=== PATIENT | female | born 1940 | race Caucasian/White ===

== ENCOUNTER 2020-06-11 13:30 | Outpatient (RCR) | payer MEDICARE, SELFPAY ==
--- NOTE | 2020-03-19 13:38 | PTOPEVAL ---
PHYSICAL THERAPY EVALUATION AND PLAN OF TREATMENT 03-19-2020 Thank you for referring Stephanie Simon to [facility].? She is scheduled to be seen for therapy? 2 x/week for 5 weeks. Please review, sign, date and return this plan of care JADYN. I agree with and certify that the following plan of care is medically necessary. Referring Physician Date Attending Provider: FIDELIA Baxter PT Outpatient Evaluation Document 03/19/20 12:35 BERNARDO (Rec: 03/19/20 13:38 BERNARDO [id number]) Outpatient Past Medical History Past Medical History Source of Past Medical History Patient Neurological History Hx Seizures Yes: meds control; not had any since 1970 Hx Other Neurological Disorders Yes: neuropathy in hands and feet- numb Cardiovascular History Hx Hypercholesterolemia Yes: meds Respiratory History Hx Other Respiratory Disorders Yes: SOB with exertion Gastrointestinal History Hx Other Gastrointestinal Disorders Yes: stomach hurt- not sure why,when eat it hurts Genitourinary History Hx Genitourinary Disorders No Significant History Musculoskeletal History Hx Back Pain Yes: dr said need back surgery , but avoiding dr due to COVID Hx Other Musculoskeletal Disorders Yes: muscle spasms- in back and sides of hips Hematological History Hx Hematological Disorders No Significant History Endocrine History Hx Hypothyroidism Yes: meds HEENT History Hx Cataracts Yes Hx Macular Degeneration Yes Hx Other HEENT Disorders Yes: wear glasses; B hearing aides; Other History Hx Other Medical Conditions Yes: vertigo/ dizzy when head moves Evaluation Information Problem Diagnosis falls/ gait imbalance Onset February 03, 2020 Subjective Information fell in February, up Query Text:As Reported By Patient/ off toliet, fell forward and Family hit forehead on tub; have had other falls, but not sure how long ago, over 6 months; more problems with walking due to back leaning over and back pain; dr said I needed surgery on my back, but not sure why or what they want to do; Previous Treatments Previous Treatments For This Problem no PT for balance; Prior Level of Function Activity Level (Last 3 Months) Occupation retired Activity of Daily Living Ability Independent Indoor/Home
--- NOTE | 2020-03-19 13:53 | PCPTNOTE ---
At the evaluation time, pt stated she wanted to skip the week of for any therapy appointments; may be having some family come in from out of town.
--- NOTE | 2020-04-15 14:17 | OTOPEVAL ---
OCCUPATIONAL THERAPY EVALUATION 04/15/20 Thank you for referring Stephanie Simon to [facility].? The patient is scheduled to be seen for therapy?1x/week for 4 weeks. Please review, sign, date and return this plan of care JADYN. I agree with and certify that the following plan of care is medically necessary. 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 Cardiovascular History Hx Hypercholesterolemia Yes: meds Respiratory History Hx Other Respiratory Disorders Yes: SOB with exertion Gastrointestinal History Hx Other Gastrointestinal Disorders Yes: stomach hurt- not sure why,when eat it hurts Genitourinary History Hx Genitourinary Disorders No Significant History Musculoskeletal History Hx Arthritis Yes Hx Back Pain Yes: dr said need back surgery , but avoiding dr due to COVID Hx Other Musculoskeletal Disorders Yes: muscle spasms- in back and sides of hips Hematological History Hx Hematological Disorders No Significant History Endocrine History Hx Hypothyroidism Yes: meds HEENT History Hx Cataracts Yes Hx Macular Degeneration Yes Hx Other HEENT Disorders Yes: wear glasses; B hearing aides; Other History Hx Other Medical Conditions Yes: vertigo/ dizzy when head moves Evaluation Information Problem Diagnosis Left hand pain Subjective Information Dejah reports pain in her Query Text:As Reported By Patient/ left thumb. She states that Family when she is using her thumb, the end joint gets stuck and she has to use her right hand to straighten it. She states this has been happening for about 1 month. She reports difficulties using the hand to button. Diagnostic Tests X-Rays For This Problem No MRI For This Problem No Other Tests For This Problem No Prior Level of Function Activity Level (Last 3 Months) Hand Dominance Right Activity of Daily Living Ability Independent Cooking Yes Cleaning Yes
--- NOTE | 2020-04-23 14:38 | PTOPEVAL ---
PHYSICAL THERAPY DISCHARGE 04-23-20 Refer to the clinical summary below for the comparison for today and the initial evaluation. Her goals were achieved, except time for 5 reps of sit/stand and Tinetti balance score. Thank you for referring Stephanie Simon to [facility] Please review, sign, date and return this discharge JADYN. I agree with and certify that the following plan of care is medically necessary. Referring Physician Date Attending Provider: Marcelina Ingram, JELANI-C Document 04/23/20 13:55 BERNARDO (Rec: 04/23/20 14:38 BERNARDO [id number]) Assessment Status Discharge Subjective Information Dejah reports: legs are Query Text:As Reported By Patient/ better and walking is better Family since doing therapy; doing exercises at home; has not had any falls; not using the wheeled walker anymore; Pain Assessment Timing of Pain Assessment Timing of Pain Assessment Assessment Self Report Self Report Pain Level 0 Pain Score Pain Score 0: Self Report Lower Extremity Muscle Strength Testing General Lower Extremity Strength Gross Lower Extremity Strength standing R and L with B UE hold: hip abduction, hip extension, knee flexion; B PF x 20 reps each; sitting: knee extension to 0' R and L x 20 reps; able to sit with upright trunk and correct back posture, but increase pain in back and cannot maintain good posture; supine: pt reports increased pain in lower abdomen and not able to lie stand with knee extension B 0' and hip extension Balance Assessment Tinetti Balance Assessment Sitting Balance Steady, safe Ability to Arise Able, w/o using arms Attempts to Arise Arises on 1st attempt Immediate Standing Balance Steady w/o support Standing Balance Narrow stance w/o support Nudged Response Steady Standing with Eyes Closed Steady Step Pattern Turning 360 Degrees Continuous steps Stability Turning 360 Degrees Steady Sitting Down Safe, steady Initiation of Gait No hesitancy Right Foot Step Length Does pass stance foot Right Foot Step Height Completely clears floor Left Foot Step Length Does pass stance foot Left Foot Step Height Completely clears floor Step Symmetry Step length appears equal Step Continuity Steps appear continuous Path Descript
--- NOTE | 2020-05-26 15:18 | OTOPEVAL ---
OCCUPATIONAL THERAPY RE-EVALUATION REPORT 05/26/20 Thank you for referring Stephanie Simon to [facility].? The patient is scheduled to be seen for continued occupational therapy? 1x/week for 3 weeks. Please review, sign, date and return this plan of care JADYN. I agree with and certify that the following plan of care is medically necessary. Referring Physician Date Referring Provider: Marcelina Ingram, FIDELIA *OT Outpatient Re-Evaluation Evaluation Information Problem Diagnosis Left hand pain Onset February 2020 Additional Evaluation Detail Patient has been treated for signs and symptoms of trigger thumb as demonstrated by the thumb IP getting stuck in a bent position with severe pain . She has been wearing a figure-8 immobilizer to rest the FPL tendon since 04/15/20. At the start of care she needed to manually pull the IP back into extension and today she is able to freely bend and extend the IP joint with out triggering or severe pain. Subjective Information [place] reports that her Query Text:As Reported By Patient/ thumb rarely gets stuck . She Family does remove the splint for dishes, bathing, and dressing. Pain Assessment Timing of Pain Assessment Timing of Pain Assessment Re-assessment Pain Scale Pain Scale Used Numeric (1 - 10) Self Report Pain Assessment Left Thumb(s) Reported Pain Level 0 Lowest Pain Intensity 0 Greatest Pain Intensity 3 Pain Score Pain Score 0: Self Report Additional Pain Score Comments At the initial evaluation, patient was experiencing 10/ 10 pain in the left thumb. Today she reports her pain at 0/10 with intermittent instances of pain at 3/10 . She has been able to use the left hand without the splint for dishes, bathing, and dressing and reports doing well. Upper Extremity Range of Motion Thumb Range of Motion Left Thumb MCP Flexion - Active 70 Thumb IP Flexion - Active 45 Thumb CMC Radial Abduction - Active 50 Opposition to 5th Digit Base 0 Thumb Range of Motion Comments -Thumb CMC and MCP AROM is WNL. -At rest she has a collapsed
--- NOTE | 2020-06-11 14:21 | OTOPEVAL ---
OCCUPATIONAL THERAPY D/C 06/11/20 Dejah presents today for second re-evaluation since beginning hand therapy on 04/15/20. She has made progress with having less thumb pain, considering at the start of care she was having 10/10 pain and the thumb IP was getting stuck in a flexed position daily. At this time she has no functional limitations and pain rated at 3-4/10 with cooking and dishes. She is independent with splint wearing schedule and a splint weaning schedule as her pain continues to subside over time. Discharging today with patient independent with all materials. Thank you for referring Stephanie Simon to [facility]. Please review, sign, date and return this D/C Note JADYN. I agree with and certify that the following plan of care is medically necessary. Referring Physician Date Referring Provider: Marcelina Ingram, FIDELIA *OT Outpatient Evaluation Start: 04/15/20 13:08 Evaluation Information Problem Diagnosis Left hand pain Onset February 2020 Additional Evaluation Detail Patient has been treated for signs and symptoms of trigger thumb as demonstrated by the thumb IP getting stuck in a bent position with severe pain . She wore a figure 8 splint to immobilize the thumb IP x4 weeks and she can now bend and extend IP joint with out triggering or severe pain. She does have some residual pain and soreness at the MCP joint. Subjective Information Dejah reports that her Query Text:As Reported By Patient/ thumb rarely gets stuck . She Family reports no functional limitations at this time. Pain Assessment Timing of Pain Assessment Timing of Pain Assessment Re-assessment Pain Scale Pain Scale Used Numeric (1 - 10) Self Report Pain Assessment Left Thumb(s) Reported Pain Level 0 Lowest Pain Intensity 0 Greatest Pain Intensity 4 Pain Score Pain Score 0: Self Report Upper Extremity Range of Motion Thumb Range of Motion Left Thumb MCP Flexion - Active 70 Thumb IP Flexion - Active 45 Thumb CMC Radial Abduction - Active 50 Opposition to 5th Digit Base 0 Thumb Range of Motion Comments -Thumb CMC and MCP AROM is WNL . -At rest she has a collapsed thumb with CMC flexion and MCP hyperextension due to arthritic changes. -Patient continues to have intermittent instances of thumb triggering. She is able
== END 2020-06-12 09:47 | disposition home or self-care (01) ==
LOC: ANHOT 13:30
PROVIDERS: PCP Internal Medicine; Visit Provider Clinical Nurse Specialist
DX: Z91.81 History of falling (principal)
CPT/HCPCS: 97018; 97035; 97110; 97112; 97116; 97140; 97161; 97165; 97530; L3913; L3933

== ENCOUNTER 2020-07-21 11:20 | Outpatient (CLI) | payer MEDICARE, SELFPAY | END 2020-07-21 11:21 | disposition home or self-care (01) | LOC: ANHCOVIDVC 11:21 | PROVIDERS: PCP Internal Medicine | DX: Z23 Encounter for immunization (principal) | CPT/HCPCS: 0001A; 91300 ==

== ENCOUNTER 2020-08-11 11:35 | Outpatient (CLI) | payer MEDICARE, SELFPAY | END 2020-08-11 11:36 | disposition home or self-care (01) | LOC: ANHCOVIDVC 11:36 | PROVIDERS: PCP Internal Medicine | DX: Z23 Encounter for immunization (principal) | CPT/HCPCS: 0002A; 91300 ==

== ENCOUNTER 2020-10-14 13:14 | Emergency (ER) | payer MEDICARE, SELFPAY ==
--- NOTE | ~2020-10-14 | CT_ITS ---
EXAMINATION: CT lumbar spine wo con DATE: 10/14/2020 14:23 INDICATION: Low back pain. Fall. TECHNIQUE: Computed tomography (CT) of the lumbar spine was performed without intravenous contrast. A utomated exposure control and iterative reconstruction technique were employed. The dose-length produ ct was 998.44 mGy-cm. COMPARISON: Lumbar spine radiograph 07/19/2018 FINDINGS: There is 3 degrees levocurvature of lumbar spine. There is a chronic compression fracture o f L1 with 1/5 loss of height. There is severely decreased disc height at T12, L3-L4, L4-L5, and L5-S1 . The following disc levels are specifically discussed: L1-L2: The disc is bulging. There is mild bilateral facet joint osteoarthritis. There is mild bilater al neural foraminal stenosis. There is mild central canal stenosis. L2-L3: The disc is bulging. There is moderate bilateral facet joint osteoarthritis. There is mild sandi ateral neural foraminal stenosis. There is mild central canal stenosis. L3-L4: The disc is bulging. There is moderate bilateral facet joint osteoarthritis. There is moderate bilateral neural foraminal stenosis. There is mild central canal stenosis. L4-L5: The disc is bulging. There is moderate bilateral facet joint osteoarthritis. There is moderate bilateral neural foraminal stenosis. There is mild central canal stenosis. L5-S1: The disc does not extend beyond the endplate margin. There is severe bilateral facet joint ost eoarthritis. There is mild bilateral neural foraminal stenosis. There is no central canal stenosis. IMPRESSION: 1. Severe lumbar spondylosis. Reviewed, dictated and finalized at location A.
--- NOTE | ~2020-10-14 | CT_ITS ---
EXAMINATION: CT brain wo con DATE: 10/14/2020 14:23 INDICATION: Head injury. TECHNIQUE: Computed tomography (CT) of the head was performed without intravenous contrast. The mA wa s adjusted according to patient size. Iterative reconstruction technique was employed. The dose-lengt h product was 529.67 mGy-cm. COMPARISON: None FINDINGS: There are scattered areas of low attenuation in the cerebral white matter. There is no intr acranial hemorrhage, acute infarction, or abnormal intracranial mass lesion. There are likely changes of ocular lens replacement surgeries. 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 The mastoid air cells are normal. There is mild mucosal thickening in the ethmoid sinuses. IMPRESSION: 1. Extensive nonspecific cerebral white matter disease, which likely represents chronic small vessel ischemic disease. Reviewed, dictated and finalized at location A.
--- NOTE | ~2020-10-14 | CT_ITS ---
EXAMINATION: CT cervical spine wo con DATE: 10/14/2020 14:23 INDICATION: Posterior head injury post fall TECHNIQUE: Computed tomography (CT) of the cervical spine was performed without intravenous contrast. Automated exposure control and iterative reconstruction technique were employed. The dose-length pro duct was 151.68 mGy-cm. COMPARISON: Radiograph dated 12/30/2009 FINDINGS: Mild reversal of the normal lordosis in the mid to upper cervical spine. No spondylolisthesis or face t subluxation. Chronic mild anterior wedging at C4. Vertebral body heights are otherwise normal. No f racture. Severe disc height loss with degenerative endplate changes at C3-C4, C4-C5 and C5-C6. Mild d isc height loss at the remaining cervical levels. Cervical soft tissues are unremarkable. The visuali zed portions of the airway and apices of lungs are clear. The following disc levels are specifically discussed: C2-C3: Disc is mildly bulging. There is mild bilateral uncovertebral joint osteoarthritis. There is m ild right and severe left facet joint osteoarthritis. There is minimal right and moderate left neural foraminal stenosis. There is no central canal stenosis. C3-C4: Posterior disc osteophyte complex is present. There is severe bilateral uncovertebral joint os teoarthritis. There is mild bilateral facet joint osteoarthritis. There is moderate bilateral neural foraminal stenosis. There is mild to moderate central canal stenosis. C4-C5: Posterior disc osteophyte complex is present. There is severe bilateral uncovertebral joint os teoarthritis. There is mild bilateral facet joint osteoarthritis. There is moderate left and moderate to severe right neural foraminal stenosis. There is moderate central canal stenosis. C5-C6: Posterior disc osteophyte complex is present. There is severe bilateral uncovertebral joint os teoarthritis. There is mild bilateral facet joint osteoarthritis. There is moderate bilateral neural foraminal stenosis. There is mild to moderate central canal stenosis. C6-C7: Disc is bulging. There is moderate left and moderate to severe right uncovertebral joint osteo arthritis. There is mild bilateral facet joint osteoarthritis. There is moderate bilateral, left grea ter than right neural foraminal stenosis. There is mild central canal stenosis. C7-T1: The disc does not extend beyond the endplate margin. There is mild bilateral uncovertebral bakari nt osteoarthritis. There is mild bilateral facet joint osteoarthritis. There is minimal bilateral darwin ral foraminal stenosis. There is no central canal stenosis. IMPRESSION: 1. Severe cervical spondylosis. No acute osseous abnormality. Reviewed, dictated and finalized at location A.
[2020-10-14 13:26] VITALS: BP 112/55; PULSE 70; RESP 16; TEMP 36.3; O2SAT 99
--- NOTE | 2020-10-14 14:12 | ED.GENADULT ---
HPI - General Adult General Chief complaint: Fall Stated complaint: HEAD INJURY Time Seen by Provider: 10/14/20 13:23 Source: patient, family, EMS and RN notes reviewed Mode of arrival: EMS Limitations: no limitations History of Present Illness HPI narrative: Patient is a 80-year-old female who presents to emergency department for evaluation of head injury and back injury after having a mechanical fall which she attributes to unsteady gait with history of neuropathy. Patient presents per EMS no distress notes mild pain of the posterior head and low back. Patient denies any other injuries or complaints. Patient denies anticoagulant or antiplatelet medications. On arrival patient has not had anything for pain. Patient denies any recent illness or other complaints Related Data Home Medications Medication Instructions Recorded Confirmed cholecalciferol (vitamin D3) 50 50 mcg PO DAILY 08/21/19 09/23/20 mcg (2,000 unit) capsule lansoprazole 15 mg delayed 15 mg PO DAILY 08/21/19 09/23/20 release,disintegrating tablet Allergies Allergy/AdvReac Type Severity Reaction Status Date / Time Penicillins Allergy Unknown Hives Verified 10/14/20 13:29 Review of Systems Review of Systems: All systems reviewed & are unremarkable except as noted in HPI and below PMFSH Past Medical History Medical History Chronic midline low back pain without sciatica GERD (gastroesophageal reflux disease) Hyperlipidemia Hypothyroidism Overactive bladder Peripheral sensory neuropathy Seizure disorder Vitamin D deficiency Family History Family History (System 06/28/19 @ 11:24 by Alyson Alegria) Father Family history of malignant neoplasm of brain Mother Family history of throat cancer Social History Social History (Updated 10/14/20 @ 14:14 by Quentin Delaney PA-C) Smoking status: Former smoker Alcohol intake: never Exam Narrative: Exam Narrative: GENERAL: Well-appearing, well-nourished, and in no acute distress. HEAD: Normocephalic, atraumatic. EYES: PERRLA and EOMI. ENT: Nares clear, no rhinorrhea or epistaxis. Mucous membranes moist. NECK: Supple. No adenopathy or masses. CHEST: Clear to auscultation. No respiratory distress. No wheezes rales or rhonchi HEART: Regular rate and rhythm. No murmur heard. Normal peripheral pulses. ABDOMEN: Soft, nontender, nondistended EXTREMITIES: Normal range of motion. No edema. Mild cervical lumbar tenderness no deformities SKIN: Warm, dry, no rash. NEURO: No focal deficits. Alert and oriented x3. Cranial nerves II through XII grossly intact. Normal speech and gait PSYCH: Normal mood and affect. Course Course Emergency Course: Patient in the room no distress aware of case findings treatment plan diagnosis hemodynamically stable ABCs and vital signs intact Vital Signs Vital signs: Vital Signs Temperature 97.4 F L 10/14/20 13:26 Pulse Rate 70 10/14/20 13:26 Respiratory Rate 16 10/14/20 13:26 Blood Pressure 112/55 L 10/14/20 13:26 Pulse Oximetry 99 10/14/20 13:26 Temperature 97.4 F L 10/14/20 13:26 Pulse Rate 70 10/14/20 13:26 Respiratory Rate 16 10/14/20 13:26 Blood Pressure 112/55 L 10/14/20 13:26 Pulse Oximetry 99 10/14/20 13:26 Medical Decision Making MDM Narrative Medical decision making narrative: Patients injury or pain is consistent with musculoskeletal etiology. No signs of neurological or vascular compromise on exam. Compartments and tisues are soft without signs of compartment syndrome. Pain is felt appropriate for further evaluation on an outpatient basis. Vital Signs Vital Signs: Vital Signs Temperature 97.4 F L 10/14/20 13:26 Pulse Rate 70 10/14/20 13:26 Respiratory Rate 16 10/14/20 13:26 Blood Pressure 112/55 L 10/14/20 13:26 Pulse Oximetry 99 10/14/20 13:26 Temperature 97.4 F L 10/14/20 13:26 Pulse Rate 70 10/14/20 13:26 Respiratory Rate
[2020-10-14 15:53] VITALS: BP 120/58; PULSE 72; RESP 18; TEMP 36.7; O2SAT 99
== END 2020-10-14 15:45 | disposition home or self-care (01) ==
PROVIDERS: Emergency Provider Emergency Medicine; PCP Internal Medicine
DX: S09.90XA Unspecified injury of head, initial encounter (principal); M54.5 Low back pain; M47.812 Spondylosis without myelopathy or radiculopathy, cervical region; K21.9 Gastro-esophageal reflux disease without esophagitis; E78.5 Hyperlipidemia, unspecified; E03.9 Hypothyroidism, unspecified; G40.909 Epilepsy, unspecified, not intractable, without status epilepticus; W19.XXXA Unspecified fall, initial encounter
CPT/HCPCS: 70450; 72125; 72131; 99284

== ENCOUNTER → 2020-10-21 15:16 | Outpatient (CLI) | payer MEDICARE, SELFPAY ==
--- NOTE | ~2020-10-21 | XR_ITS ---
XR knee LT 2V DATE: 10/21/2020 15:43 INDICATION: Bilateral knee pain TECHNIQUE: Standing AP and lateral views COMPARISON: None FINDINGS: There is diffuse osteopenia. No fracture or dislocation or joint effusion. No periosteal reaction or bone destruction. Joint space s are relatively well preserved. No radiopaque intra-articular loose body or chondrocalcinosis. Popliteal artery calcification. IMPRESSION: Osteopenia Reviewed, dictated and finalized at location A. IMPRESSION: Osteopenia
--- NOTE | ~2020-10-21 | XR_ITS ---
XR knee RT 2V DATE: 10/21/2020 15:43 INDICATION: Bilateral knee pain TECHNIQUE: Standing AP and lateral views COMPARISON: None FINDINGS: There is diffuse osteopenia. No fracture or dislocation or joint effusion. No periosteal reaction or bone destruction. Joint space s are well preserved. No radiopaque intra-articular loose body or chondrocalcinosis. IMPRESSION: Osteopenia Reviewed, dictated and finalized at location A. IMPRESSION: Osteopenia
== END ==
PROVIDERS: PCP Internal Medicine; Visit Provider Nurse Practitioner Family
DX: M85.861 Other specified disorders of bone density and structure, right lower leg (principal); M85.862 Other specified disorders of bone density and structure, left lower leg
CPT/HCPCS: 73560

== ENCOUNTER → 2020-11-19 11:49 | Outpatient (CLI) | payer MEDICARE, SELFPAY ==
--- NOTE | ~2020-11-19 | DEXA_ITS ---
Bone Density Report Name: Stephanie Simon Age: 80 Sex: Female Ethnicity: White Date of : 1940 Indication: postmenopausal; screening for osteoporosis; height loss; seizure disorder; Referring Provider: Krys Scales Study: Bone densitometry was performed. Exam Date: November 19, 2020 Accession number: [id number] Bone Density: Region BMD T-score Z-score Classification AP Spine (L1, L2) 0.852 -1.2 1.3 Osteopenia Femoral Neck (Left) 0.489 -3.2 -1.0 Osteoporosis Total Hip (Left) 0.569 -3.1 -1.0 Osteoporosis Femoral Neck (Right) 0.538 -2.8 -0.5 Osteoporosis Total Hip (Right) 0.544 -3.3 -1.2 Osteoporosis Total Hip Mean 0.557 -3.2 -1.1 Osteoporosis World Health Organization criteria for BMD impression classify patients as: Normal (T-score at or above -1.0), Osteopenia (T-score between -1.0 and -2.5), or Osteoporosis (T-score at or below -2.5). 10-year Fracture Risk: FRAX not reported because: Some T-score for Spine Total or Hip Total or Femoral Neck at or below -2.5 Clinical Information Provided by Patient: Has used the following medications: Vitamin D, Levothyroxine Has the following medical conditions: Any Seizure Disorders Patient maximum height was 62.0 Menopause Age: 52 No regular weight bearing exercise Drinks caffeinated beverages Onset of menses at age 11 Number of children 0 Impression: The patient has osteoporosis, based on the Right Total Hip T-score. Discussion: INCREASED RISK OF FRACTURE. BONE DENSITY IS UNDESIRABLY LOW AT ONE OR MORE SKELETAL SITES, CONSISTENT WITH POSTMENOPAUSAL OSTEOPOROSIS. This patient's lowest T-score meets the World Health Organization's (WHO) criteria for osteoporosis at one or more sites (T-score -2.5 or below). In untreated patients, the risk of osteoporotic fracture increases approximately two-fold for each 1.0 SD decrease in T-score. Low bone density is not the only risk factor for fracture; also consider factors such as patient's age, frailty or poor health, risk of falling, risk of injury, previous osteoporotic fracture, family history of osteoporosis, cigarette smoking, low body weight, etc. Not everyone with low bone mineral density has osteoporosis; osteomalacia and other metabolic bone disorders should also be considered. Patients who have osteoporosis should be evaluated for specific diseases and conditions (secondary causes) that may cause or contribute to bone loss. The [place] [employer]ocrinologists (AACE) and National Osteoporosis Foundation (NOF) recommend pharmacologic intervention for all postmenopausal women whose T-score is in this range. The patient should follow a healthful lifestyle (good nutrition with adequate calcium and vitamin D, and appropriate weight-bearing exercise). Follow-Up: Consider a repeat BMD and Vertebral Fractu
== END ==
PROVIDERS: PCP Nurse Practitioner; Visit Provider Nurse Practitioner
DX: Z78.0 Asymptomatic menopausal state (principal); M85.89 Other specified disorders of bone density and structure, multiple sites; M81.0 Age-related osteoporosis without current pathological fracture
CPT/HCPCS: 77080

== ENCOUNTER 2020-12-24 14:34 | Emergency (ER) | payer MEDICARE, SELFPAY ==
--- NOTE | ~2020-12-24 | XR_ITS ---
EXAMINATION: XR wrist RT 2V DATE: 12/24/2020 15:23 INDICATION: Right wrist deformity post fall TECHNIQUE: Posteroanterior and lateral views of the right wrist were obtained. COMPARISON: none FINDINGS: 3 mm ulnar positive variance. Alignment is otherwise normal. No fracture. Polyarticular osteoarthriti s, severe at the first carpometacarpal joint, moderate severity at the first, third and fourth metaca rpophalangeal and first interphalangeal joints and mild at the distal radioulnar, wrist, midcarpal, t riscaphe, second carpometacarpal and remainder of the profiled metacarpophalangeal and interphalangea l joints. Diffuse osteopenia. Soft tissues are unremarkable. IMPRESSION: 1. No acute osseous abnormality. 2. Polyarticular osteoarthritis, severe at the first carpometacarpal joint and mild to moderate at mu ltiple joints throughout the remainder of the right hand and wrist. Reviewed, dictated and finalized at location A. IMPRESSION: 1. No acute osseous abnormality. 2. 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
--- NOTE | ~2020-12-24 | XR_ITS ---
XR humerus RT 12/24/2020 15:23 Indication: Right arm pain after fall Procedure: 2 views right humerus Comparison: No prior studies for comparison. Findings: There is a nondisplaced right humeral neck fracture extending inferiorly and obliquely into the metadiaphysis. Osteopenia. Surrounding osseous structures within normal limits. Impression: 1: Nondisplaced right humeral neck fracture extending inferiorly/obliquely into the metadiaphysis. Reviewed, dictated and finalized at location A. Impression: 1: Nondisplaced right humeral neck fracture extending inferiorly/obliquely into the metadiaphysis.
[2020-12-24 14:36] VITALS: BP 123/88; PULSE 78; RESP 16; TEMP 36.5; O2SAT 99
--- NOTE | 2020-12-24 16:25 | ED.UPPEXIN ---
HPI - Extremity Injury (Upper) General Chief Complaint: Fall Stated Complaint: fall Time Seen by Provider: 12/24/20 14:57 Source: patient and family Mode of arrival: ambulatory Limitations: no limitations History of Present Illness HPI narrative: 80-year-old female She apparently has occasional trouble with stumbling and falling due to weak legs This happened at her home 4 days ago and she crashed into the refrigerator with her right shoulder She did not go all the way to the ground, did not hit her head or lose consciousness, does not have any headache neck pain or new neurologic symptoms Here today because her shoulders been hurting since the accident and she has over the last day or so developed some impressive ecchymosis in the right upper arm Related Data Home Medications Medication Instructions Recorded Confirmed lansoprazole 15 mg delayed 15 mg PO DAILY 08/21/19 11/26/20 release,disintegrating tablet meloxicam 15 mg tablet 15 mg PO DAILY 11/26/20 11/26/20 Allergies Allergy/AdvReac Type Severity Reaction Status Date / Time Penicillins Allergy Unknown Hives Verified 11/26/20 13:47 Review of Systems Review of Systems: All systems reviewed & are unremarkable except as noted in HPI and below Constitutional: Constitutional: Reports no additional constitutional complaints, Denies chills, Denies fever(s), Denies headache(s) and Reports weakness Eyes: Eyes: Reports no additional eye complaints and Denies change in vision ENT: Denies dizziness, Denies headache(s) and Denies sore throat Cardiovascular: Cardiovascular: Denies chest pain and Denies dyspnea Respiratory: Respiratory: Denies cough and Denies dyspnea Gastrointestinal: Gastrointestinal: Denies abdominal pain, Denies diarrhea and Denies vomiting Genitourinary: Genitourinary: Denies urinary frequency and Denies dysuria Musculoskeletal: Musculoskeletal: Denies deformity, Reports arthralgias, Reports joint swelling and Denies numbness Integumentary/Breasts: Skin/Breast: Denies rash and Denies wounds Neurologic: Denies vertigo, Denies syncope, Denies headache(s), Denies focal weakness, Denies numbness and Reports weakness Psychiatric: Psychiatric: Reports no additional psychiatric complaints Endocrine: Endocrine: Reports no additional endocrine complaints Hematologic/Lymphatic: Hematologic/Lymphatic: Reports no additional hematologic/lymphatic complaints Allergic/Immunologic: Allergic/Immunologic: Reports no additional allergic/immunologic complaints PMFSH Past Medical History Medical History Age related osteoporosis Chronic midline low back pain without sciatica GERD (gastroesophageal reflux disease) Hyperlipidemia Hypothyroidism Overactive bladder Peripheral sensory neuropathy Seizure disorder Vitamin D deficiency Family History Family History Father Family history of malignant neoplasm of brain Mother Family history of throat cancer Social History Social History Smoking status: Former smoker Alcohol intake: never Exam Const: General: cooperative, no acute distress and alert Orientation/consciousness: patient oriented x3 (alert) HENMT: Head: normal to inspection, normocephalic, atraumatic, no contusions and no hematomas Ears: external ears normal General nose exam: no epistaxis Eyes: Conjunctivae: conjunctivae normal EOM: EOMs intact bilaterally Neck: Neck: normal visual inspection, supple and no JVD Other: Nontender Resp: Auscultation: other (BS =) Skin: General skin exam: normal color and no rashes or lesions noted Neuro: General: patient oriented x3 (alert) and moves all extremities Speech: normal speech Extrem: Other: Large amount of diffuse ecchymosis to the right upper arm No gross deformity Tender proximal humerus Not tender at the elbow and good r
[2020-12-24 17:06] VITALS: BP 122/50; PULSE 75; RESP 18; O2SAT 98
== END 2020-12-24 17:07 | disposition home or self-care (01) ==
PROVIDERS: Emergency Provider Emergency Medicine; PCP Internal Medicine
DX: S42.214A Unspecified nondisplaced fracture of surgical neck of right humerus, initial encounter for closed fracture (principal); E78.5 Hyperlipidemia, unspecified; E03.9 Hypothyroidism, unspecified; M81.0 Age-related osteoporosis without current pathological fracture; K21.9 Gastro-esophageal reflux disease without esophagitis; N32.81 Overactive bladder; G60.8 Other hereditary and idiopathic neuropathies; E55.9 Vitamin D deficiency, unspecified; Z87.891 Personal history of nicotine dependence; M19.031 Primary osteoarthritis, right wrist; M18.9 Osteoarthritis of first carpometacarpal joint, unspecified; M19.041 Primary osteoarthritis, right hand; W01.198A Fall on same level from slipping, tripping and stumbling with subsequent striking against other object, initial encounter
CPT/HCPCS: 73060; 73100; 99284; A4565

== ENCOUNTER 2020-12-31 08:21 | Inpatient (IN) | payer MEDICARE, SELFPAY ==
[2020-12-31] VITALS (18 sets, daily range): BP systolic 95–119; BP diastolic 39–68; PULSE 70–86; RESP 9–25; TEMP 36.1–36.7; O2SAT 94–100; BMI 28.9
--- NOTE | ~2020-12-31 | XR_ITS ---
EXAMINATION: XR chest 1V portable INDICATION: Right-sided pain after fall TECHNIQUE: Portable AP chest at 1807 hours COMPARISON: 01/13/2015 FINDINGS: Calcified pulmonary nodules are consistent with old granulomatous disease. The lungs are fr ee of acute opacities. There is no pleural effusion or pneumothorax. The cardiomediastinal silhouette is normal. IMPRESSION: 1. No acute cardiopulmonary abnormality. Reviewed, dictated and finalized at location A.
--- NOTE | ~2020-12-31 | CT_ITS ---
EXAMINATION: CT brain wo con EXAM DATE: 12/31/2020 09:07 INDICATION: Fall. Head injury. TECHNIQUE: Spiral CT of the head was performed without contrast. Axial, coronal and sagittal images were reviewed. The dose-length product (DLP) for this examination was 605.33 mGy-cm. The exposure w as tailored according to patient size, and iterative reconstruction (ASIR) was used as additional dos e reduction technique. Comparison is made to prior examination from 10/14/2020. FINDINGS: There is no acute intraparenchymal hemorrhage. No evidence of intraparenchymal brain mass lesion. No evidence of acute infarction. Please note that initial head CT has limited sensitivity f or small or acute infarctions. There is moderate periventricular and subcortical hypodensity, nonspec ific but probably related to small vessel ischemic disease. There is mild to moderate prominence of the sulci and ventricles related to cerebral atrophy. 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 There are no extra-axial collections. There is no mass effect or midline shift. Patient has kimbrough d bilateral ocular lens surgery. Soft tissue is unremarkable. The visualized sinuses and mastoid ai r cells are well aerated. IMPRESSION: 1. No acute intracranial findings. 2. Chronic age related findings. Reviewed, dictated and finalized at location A.
--- NOTE | ~2020-12-31 | XR_ITS ---
EXAMINATION: XR surgery orthopedic DATE: 01/02/2021 14:25 INDICATION: Left hip gamma nailing post fracture TECHNIQUE: 5 fluoroscopic images of the left hip were obtained during procedure performed by Dr. Brooke chen. Radiologist was not present for the imaging or procedure. The amount of fluoroscopy time used du ring this procedure was 5.7 minutes. COMPARISON: 12/31/2020 FINDINGS: [employer] image demonstrates a nondisplaced intratrochanteric fracture of the proximal left femur. Subseq uent images demonstrate antegrade intramedullary shaw with interlocking femoral neck dynamic compressi on screw and distal interlocking screw fixation. Alignment remains essentially anatomic. Mild to mode rate left hip osteoarthritis. Chronic heterotopic ossification overlying the left greater trochanter. No new fractures identified. IMPRESSION: 1. Essentially anatomic alignment post internal fixation of a nondisplaced intratrochanteric fracture of the proximal left femur. Reviewed, dictated and finalized at location A. IMPRESSION: 1. Essentially anatomic alignment post internal fixation of a nondisplaced intr atrochanteric fracture of the proximal left femur.
--- NOTE | ~2020-12-31 | XR_ITS ---
EXAMINATION: XR hip LT 2V w AP pelvis EXAM DATE: 12/31/2020 09:19 INDICATION: Fall, left hip pain. Fracture. TECHNIQUE: Left hip frontal, 'frog leg' projections for interpretation. Frontal projection pelvis. There is no prior study for comparison. FINDINGS: There is acute closed posttraumatic nondisplaced left hip intertrochanteric fracture. There is no hip dislocation. Pelvic ring appears intact. IMPRESSION: Acute nondisplaced left hip intertrochanteric fracture. Reviewed, dictated and finalized at location A.
--- NOTE | ~2020-12-31 | XR_ITS ---
XR shoulder LT min 2V DATE: 01/05/2021 14:07 INDICATION: Left shoulder pain, hematoma TECHNIQUE: 4 views COMPARISON: None FINDINGS: There is diffuse osteopenia. Normal alignment at the acromioclavicular and glenohumeral joints. No fracture or dislocation, perios teal reaction or bone destruction. No abnormal left shoulder soft tissue calcification. IMPRESSION: Diffuse osteopenia Reviewed, dictated and finalized at location A. IMPRESSION: Diffuse osteopenia
--- NOTE | ~2020-12-31 | XR_ITS ---
EXAMINATION: XR knee LT min 4V EXAM DATE: 12/31/2020 09:20 INDICATION: Fall, left hip intertrochanteric fracture. Left knee pain. TECHNIQUE: Left knee frontal, crosstable lateral, orthogonal oblique projections for interpretation. Comparison is made to prior examination from 10/21/2020. FINDINGS: No evidence osteochondral defect or joint body in the left knee joint. There are no acute fractures or dislocations identified. There is no subcutaneous gas. The soft tissue is unremarkabl e. There are no radiopaque foreign bodies. No joint effusion. IMPRESSION: 1. Left knee exam without acute osseous findings. Reviewed, dictated and finalized at location A.
--- NOTE | 2020-12-31 08:35 | PC.NURSE ---
bruises noted to pts arms and legs in various stages of healing. pt states is from previous falls. extensive bruise noted to right arm. black, blue and yellow in color.
--- NOTE | 2020-12-31 08:44 | ED.FALL ---
HPI - Fall General Chief Complaint: Fall Stated Complaint: left knee pain after fall Time Seen by Provider: 12/31/20 08:23 Source: RN notes reviewed History of Present Illness HPI Narrative: Patient presents emergency department from home via EMS for fall. Patient states that she was sitting on the toilet and was trying to reposition herself when she fell she states she struck the left side of her head with no loss of consciousness also states she struck her left knee. Patient states that she has been able to get up and ambulate since that occurred. Patient states that she has no chest pain shortness of breath abdominal pain or any other symptoms denies any other injuries. Patient does states she fell approximately 2 weeks ago and broke her right shoulder at that time states that since that time she been having difficulty time getting around at her house and her family is also present states the patient has been unable to ambulate in the family is basically been having to lift her up to move her at this point with a repeated fall feel the patient is not safe to return home Related Data Home Medications Medication Instructions Recorded Confirmed lansoprazole 15 mg delayed 15 mg PO DAILY 08/21/19 12/29/20 release,disintegrating tablet meloxicam 15 mg tablet 15 mg PO DAILY 11/26/20 12/29/20 Allergies Allergy/AdvReac Type Severity Reaction Status Date / Time Penicillins Allergy Unknown Hives Verified 12/29/20 14:14 Review of Systems Review of Systems: Gen.: Denies fevers or chills Eyes: Denies eye pain or visual change ENT: Denies congestion Respiratory: Denies shortness of breath or cough CV: Denies chest pain or palpitations GI: Denies abdominal pain nausea, emesis or diarrhea denies burning, urgency, frequency or hematuria Musculoskeletal: See HPI Neuro: Denies numbness, tingling, reports generalized weakness Skin: Denies rash Except as documented, all other systems reviewed and negative PMF Past Medical History Medical History Age related osteoporosis Chronic midline low back pain without sciatica GERD (gastroesophageal reflux disease) Hyperlipidemia Hypothyroidism Overactive bladder Peripheral sensory neuropathy Seizure disorder Vitamin D deficiency Family History Family History Father Family history of malignant neoplasm of brain Mother Family history of throat cancer Social History Social History Smoking status: Former smoker Alcohol intake: never Substance use: never Gender identity (if verbalized by the patient): Female Exam Narrative: APPEARANCE: No acute distress, nontoxic, resting in bed EYES: EOMI HEENT: Normocephalic, atraumatic, OMM RESPIRATORY: No respiratory distress Clear to auscultation bilaterally with no rhonchi wheezing or rales. CARDIOVASCULAR: Regular rate and rhythm without murmurs rubs or gallops. ABDOMINAL: Soft, nontender, nondistended, no rebound or guarding MUSCULOSKELETAl: Moves all extremities. No clubbing, cyanosis or edema. No tenderness palpation bilateral upper extremities and right lower extremity tender palpation over the left lateral hip with no swelling or ecchymosis tender palpation of the left anterior lateral knee no swelling or ecchymosis, pain with flexion of the left knee no tenderness left ankle dorsalis pedis pulse 2+ neurovascular intact NEURO: Awake and alert x 3. Following commands, speech normal, no focal deficits SKIN:: Warm, dry. No rashes lesions or abrasions PSYCHIATRIC: Normal affect/mood, Course Course Emergency Course: Reviewed old records patient seen by Dr. Small 2 days ago for proximal humerus fracture Discussed Dr. Curry presentation work-up agrees with consult Dr. Oneill accepts patient to hospitalist service Discussed with patient and family results of workup
[2020-12-31 08:57] LABS: Basophils Percent Auto 0.6 % (0.2-1.2); Eosinophils Absolute Auto 0.1 K/mm3 (0-0.3); Eosinophils Percent Auto 2.4 % (0-4.4); Hematocrit 34.5 % (37.0-47.0); Hemoglobin 11.1 g/dL (12.0-15.0); Immature Granulocyte Absolute 0.02 K/mm3 (0.00-0.031); Immature Granulocyte Percent A 0.4 % (0-0.5); Lymphocytes Absolute Auto 0.95 K/mm3 (0.9-3.2); Lymphocytes Percent Auto 18.8 % (18.3-44.2); Mean Corpuscular HGB Conc 32.2 g/dl (32-36); Mean Corpuscular Hemoglobin 34.3 pg (26-34); Mean Corpuscular Volume 106.5 fl (80-100); Mean Platelet Volume 10.1 fl (7.4-10.4); Monocytes Absolute Auto 0.5 K/mm3 (0.1-0.6); Monocytes Percent Auto 9.5 % (2.6-8.5); Neutrophils Absolute Auto 3.5 K/mm3 (1.3-6.7); Neutrophils Percent Auto 68.3 % (45.5-73.1); Platelet Count Result 155 k/mm3 (150-375); Red Blood Count 3.24 M/mm3 (4.2-5.4); Red Cell Distribution Width 13.4 % (11.5-14.5); White Blood Count 5.1 K/mm3 (4.5-10.0)
[2020-12-31 09:07] LABS: Alanine Aminotransferase 14 U/L (4-35); Albumin Level 4.5 g/dL (3.5-5.1); Alkaline Phosphatase 99 U/L (38-126); Anion Gap 9 mmol/L (8-16); Aspartate Amino Transferase 27 U/L (14-36); Bilirubin,Total 0.4 mg/dL (0.2-1.3); Blood Urea Nitrogen 14 mg/dL (7-17); Calcium 8.6 mg/dL (8.4-10.2); Carbon Dioxide 29 mmol/L (22-30); Chloride 106 mmol/L (98-107); Estimated CRCL calculation 51 ml/min; Estimated Glomerular Filt Rate > 60; Glucose 162 mg/dL (65-110); Potassium 4.8 mmol/L (3.4-5.0); Sodium 144 mmol/L (137-145)
[2020-12-31] MEDS: ACETAMINOPHEN 500 MG TABLET 1000 MG PO (09:30)
--- NOTE | 2020-12-31 09:35 | ECG_ITS ---
Measurements Intervals [place] Rate: 74 P: -19 ME: 136 QRS: 58 QRSD: 94 T: 2 QT: 420 QTc: 467 Interpretive Statements SINUS RHYTHM BORDERLINE ST-T WAVE ABNORMALITY- ANT/INF LEADS BASELINE ARTIFACT- I, II, III, AVR, AVL, AVF, V2-V6 BORDERLINE ECG Electronically Signed On 12-31-2020 9:53:40 CDT by Terrence Meza D.O.
[2020-12-31 10:29] LABS: Add Urine Microscopic? YES; Appearance Urine Clear (Clear); Bacteria Urine Trace /hpf; Bilirubin Urine Negative (Negative); Color Urine Yellow (Yellow); Glucose Urine UA Negative (Negative); Ketones Urine Negative (Negative); Leukocyte Esterase Ur 2+ LEU/UL (Negative); Mucus Urine Rare /lpf; Nitrate Urine Positive (Negative); Protein Urine Negative (Negative); Specific Grav Ur 1.014 (1.001-1.035); Squamous Epithelial Cell Urine Occasional /hpf (Few); Urobilinogen Urine Negative mg/dL (<2.0); WBC Urine 51-75 /hpf
[2020-12-31 10:31] LABS: Blood Urine Negative (Negative)
[2020-12-31 11:51] LABS: Prothrombin Time 13.1 Seconds (11.1-14.7)
[2020-12-31 11:52] LABS: Partial Thromboplastin Time 24.1 SECONDS (22.3-36.8)
--- NOTE | 2020-12-31 12:42 | PM.CNOR ---
Assessment and Plan Additional Plan KAREN IS HERE FOR A LEFT INTERTROCHANTERIC HIP FRACTURE. SHE WILL REQUIRE PLACEMENT OF GAMMA DAVIAN. SHE CURRENTLY APPEARS TO BE STABLE. SHE DOES HAVE A UTI THAT SHOULD BE TREATED PRIOR TO DAVIAN PLACEMENT IF POSSIBLE. I DISCUSSED THE RISKS AND COMPLICATIONS OF SURGERY WITH THE PATIENT. DISCUSSED NONOPERATIVE AND OPERATIVE TREATMENT OPTIONS WITH THE PATIENT. THE PATIENT'S QUESTIONS WERE ANSWERED. THE PATIENT DESIRES OPERATIVE TREATMENT. DISCUSSED ___PLACEMENT OF GAMMA DAVIAN LEFT HIP. . RISKS OF SURGERY INCLUDING BUT NOT LIMITED TO NEUROVASCULAR DAMAGE, WOUND COMPLICATIONS, BLOOD CLOT, PULMONARY EMBOLUS, STROKE, ID, ANESTHETIC RISKS UP TO AND INCLUDING WERE REVIEWED. CONTINUED PAIN AND POSSIBLE DYSFUNCTION WERE EXPLAINED. NO GUARANTEES WERE OFFERED. THE PATIENT UNDERSTANDS AND WISHES TO PROCEED. History of Present Illness HPI Consult date: 12/31/20 Consult reason: fracture Chief complaint: left hip fracture Narrative: KAREN WAS ADMITTED TO THE ED AFTER A FALL FROM THE TOILET. NOW SHE HAS A LEFT INTERTROCHANTERIC HIP FRACTURE WITH MINIMAL DISPLACEMENT. SHE DENIES ANY OTHER PAIN OR ANY LOC OR NECK OR BACK PAIN. SHE HAS A PRIOR RIGHT PROXIMAL HUMERUS FRACTURE THAT I AM TREATING WELL. SHE HAS NO NEW COMPLAINTS OF SHOULDER PAIN. Review of Systems Review of Systems: All systems reviewed & are unremarkable except as noted in HPI and below (HPI) Eyes: Eyes: Reports no additional eye complaints ENT: Reports system reviewed and no additional complaints, except as documented and Reports Normal hearing present Cardiovascular: Cardiovascular: Reports no additional cardiovascular complaints and Denies chest pain Respiratory: Respiratory: Reports no additional respiratory complaints and Denies dyspnea Gastrointestinal: Gastrointestinal: Reports no additional gastrointestinal complaints Genitourinary: Genitourinary: Reports no additional female genitourinary complaints Musculoskeletal: Musculoskeletal: Reports as per HPI Neurologic: Reports system reviewed and no additional complaints, except as documented PMFSH Past Medical History Medical History Age related osteoporosis Chronic midline low back pain without sciatica GERD (gastroesophageal reflux disease) Hyperlipidemia Hypothyroidism Overactive bladder Peripheral sensory neuropathy Seizure disorder Vitamin D deficiency Family History Family History Father Family history of malignant neoplasm of brain Mother Family history of throat cancer Social History Social History Smoking status: Former smoker Alcohol intake: never Substance use: never Substance use type: does not use Gender identity (if verbalized by the patient): Female Spiritual care concerns: No Meds Home Medications and Allergies Home Medications Medication Instructions Recorded Confirmed Type lansoprazole 15 mg delayed 15 mg PO DAILY 08/21/19 12/31/20 History release,disintegrating tablet simvastatin 40 mg tablet 40 mg PO DAILY #90 tablet 06/24/20 12/31/20 Rx phenytoin sodium extended 100 mg 300 mg PO DAILY #270 cap 08/05/20 12/31/20 Rx capsule levothyroxine 75 mcg tablet 75 mcg PO DAILY #90 tablet 09/11/20 12/31/20 Rx cholecalciferol (vitamin D3) 125 125 mcg PO DAILY #30 cap 11/26/20 12/31/20 Rx mcg (5,000 unit) capsule denosumab 60 mg/mL subcutaneous 60 mg SUBCUT [id number] #1 ml 11/26/20 12/31/20 Rx syringe meloxicam 15 mg tablet 15 mg PO DAILY 11/26/20 12/31/20 History gabapentin 400 mg capsule 400 mg PO TID #270 cap 12/01/20 12/31/20 Rx Allergies Allergy/AdvReac Type Severity Reaction Status Date / Time Penicillins Allergy Unknown Hives Verified 12/29/20 14:14 Vital Signs Vital Signs - 24 hr 12/31/20 08:19 12/31/20 09:23 12/31/20 09:24
[2020-12-31] MEDS: LACTATED RINGERS 1,000 ML 80 ML IV CONT (13:01)
--- NOTE | 2020-12-31 15:47 | PC.NURSE ---
pt's brother, Landon, called wanting to know why he never received his phone call. Landon stated that the ED informed him that the RN would call him once pt was admitted. ED never said anything to me about their promise for me to call him.
--- NOTE | 2020-12-31 20:19 | PM.IMHP ---
H&P: HPI History of Present Illness Date/Time: 12/31/20 20:20 this is a very pleasant 80-year-old female patient who lives home alone. The patient has had multiple falls. She sustained a fall in her home on 12/20/2020 and Sustained a proximal humerus fracture which is placed in a immobilizer she was instructed to be on no weight-bearing to right upper extremity. however today the patient presented to the emergency room after another fall. The patient was sitting on the toilet was trying to reposition herself when she states that she struck the left side of her head and did not lose any consciousness. the patient stated she was Not able to get up and ambulate. The patient stated that she has been having difficulty getting around her house since she has had her right humerus fracture. The family member was unable to ambulate the patient today and they had to lift her up To move Her. the family member stated that the patient is not safe to return home. Left knee x-ray was read as left knee exam without osseous findings. Hip and pelvis x-ray read as acute nondisplaced left hip intertrochanteric fracture. Head CT was read as no acute intracranial findings. Chronic age-related findings. Her H&H is 11.1 and 34.5. Glucose is 162. The patient was found to be positive for UTI. I asked the patient if she could have possibly had a seizure because she has a history of having a seizure and is on seizure medicine. However the patient stated she has not had a seizure since 1970. The patient was started on Levaquin and given Tylenol for her discomfort. the patient was seen by Dr. Curry for ortho consult. The patient will require a gamma shaw.The patient is being admitted for observation status on the date of service of 12/31/2020 Chief Complaint: left hip pain Review of Systems Review of Systems: All systems reviewed & are unremarkable except as noted in HPI and below Constitutional: Constitutional: Reports as per HPI and Reports no additional constitutional complaints Eyes: Eyes: Reports as per HPI and Reports no additional eye complaints ENT: Reports system reviewed and no additional complaints, except as documented and Reports Normal hearing present Cardiovascular: Cardiovascular: Reports no additional cardiovascular complaints Respiratory: Respiratory: Reports no additional respiratory complaints and Reports no additional respiratory complaints Gastrointestinal: Gastrointestinal: Reports as per HPI and Reports no additional gastrointestinal complaints Musculoskeletal: Musculoskeletal: Reports no additional musculoskeletal complaints Integumentary/Breasts: Skin/Breast: Reports system reviewed and no additional complaints, except as docu and Reports as per HPI Neurologic: Reports system reviewed and no additional complaints, except as documented, Reports as per HPI and Reports Normal hearing present Psychiatric: Psychiatric: Reports no additional psychiatric complaints and Reports as per HPI Endocrine: Endocrine: Reports no additional endocrine complaints Hematologic/Lymphatic: Hematologic/Lymphatic: Reports no additional hematologic/lymphatic complaints Allergic/Immunologic: Allergic/Immunologic: Reports no additional allergic/immunologic complaints [facility] Past Medical History Medical History (Updated 12/31/20 @ 20:35 by Fabiola Girard NP) Age related osteoporosis Chronic midline low back pain without sciatica GERD (gastroesophageal reflux disease) Hyperlipidemia Hypothyroidism Overactive bladder Peripheral sensory neuropathy Seizure disorder Vitamin D deficiency Surgical History Surgical History (Updated 12/31/20 @ 20:30 by Fabiola Girard NP) Hx of cataract extraction Family History Family History Father Family history of malignant neoplasm of brain Mother Family history of throat cancer Social History Social History (Updated 12/31/20 @ 20:31 by Fabiola
[2020-12-31] MEDS: HYDROcodone/acetaminophen (*CRX) 5-325 MG TABLET 1 TAB PO (22:07)
[2021-01-01] MEDS: HYDROcodone/acetaminophen (*CRX) 5-325 MG TABLET 1 TAB PO ×3 (03:37→21:16)
[2021-01-01] MEDS: LACTATED RINGERS 1,000 ML 80 ML IV CONT (03:41)
[2021-01-01 05:43] LABS: Basophils Percent Auto 0.4 % (0.2-1.2); Eosinophils Absolute Auto 0.1 K/mm3 (0-0.3); Eosinophils Percent Auto 1.4 % (0-4.4); Immature Granulocyte Absolute 0.01 K/mm3 (0.00-0.031); Immature Granulocyte Percent A 0.2 % (0-0.5); Immature Platelet Fraction Pct 5.1 % (0.9-11.2); Lymphocytes Absolute Auto 0.92 K/mm3 (0.9-3.2); Lymphocytes Percent Auto 18.8 % (18.3-44.2); Mean Corpuscular HGB Conc 32.1 g/dl (32-36); Mean Corpuscular Hemoglobin 33.7 pg (26-34); Mean Corpuscular Volume 104.9 fl (80-100); Mean Platelet Volume 10.3 fl (7.4-10.4); Monocytes Absolute Auto 0.6 K/mm3 (0.1-0.6); Monocytes Percent Auto 11.2 % (2.6-8.5); Neutrophils Absolute Auto 3.3 K/mm3 (1.3-6.7); Platelet Count Result 125 k/mm3 (150-375); Red Blood Count 2.67 M/mm3 (4.2-5.4); Red Cell Distribution Width 13.4 % (11.5-14.5); White Blood Count 4.9 K/mm3 (4.5-10.0)
[2021-01-01] MEDS: LEVOTHYROXINE SODIUM 75 MCG TABLET PO (05:46)
[2021-01-01 06:00] VITALS: BP 145/57; PULSE 70; RESP 20; TEMP 36; O2SAT 100
[2021-01-01 06:02] LABS: Alanine Aminotransferase 12 U/L (4-35); Albumin Level 3.6 g/dL (3.5-5.1); Alkaline Phosphatase 77 U/L (38-126); Anion Gap 5 mmol/L (8-16); Aspartate Amino Transferase 24 U/L (14-36); Bilirubin,Total 0.3 mg/dL (0.2-1.3); Blood Urea Nitrogen 14 mg/dL (7-17); Calcium 8.3 mg/dL (8.4-10.2); Carbon Dioxide 28 mmol/L (22-30); Chloride 106 mmol/L (98-107); Estimated CRCL calculation 44 ml/min; Estimated Glomerular Filt Rate > 60; Glucose 111 mg/dL (65-110); Magnesium 2.4 mg/dL (1.6-2.3); Potassium 4.8 mmol/L (3.4-5.0); Sodium 139 mmol/L (137-145)
[2021-01-01] MEDS: PHENYTOIN SODIUM 100 MG CAP 300 MG PO (09:31)
[2021-01-01] MEDS: PANTOPRAZOLE 40 MG TABLET PO (09:31)
[2021-01-01] MEDS: GABAPENTIN 400 MG CAPSULE PO ×2 (09:31→17:05)
[2021-01-01] MEDS: SIMVASTATIN 20 MG TABLET 40 MG PO (09:31)
[2021-01-01] MEDS: CHOLECALCIFEROL 1,000 UNITS TABLET 5000 UNITS PO (09:31)
[2021-01-01 12:25] VITALS: O2SAT 96
[2021-01-01 14:00] VITALS: BP 136/42; PULSE 81; RESP 18; TEMP 36.6; O2SAT 97
--- NOTE | 2021-01-01 15:04 | P.PNIM_ITS ---
Progress Note: A&P Assessment and Plan (1) Frequent falls: Code(s): R29.6 - Repeated falls Status: Acute Assessment and Plan: She has been having several falls at home. Had a mechanical fall just prior to presentation from the toilet. She did hit her head but did not lose consciousness. Denied any precipitating symptoms. Reports her legs have been feeling weak * Fall precautions implemented * Appreciate PT/OT evals * Head CT with no acute findings * Left knee x-ray with no acute findings. * Complains of right-sided chest wall pain. Will obtain bilateral rib x-rays * Will check B12, folic acid given her weakness. TSH within normal limits. Check vitamin-D level * She will also benefit from an outpatient DEXA scan given falls and fractures. She is on Prolia injections every 6 months. (2) Closed intertrochanteric fracture of left hip: Code(s): S72.142A - Displaced intertrochanteric fracture of left femur, initial encounter for closed fracture Status: Acute Assessment and Plan: Secondary to mechanical fall as described above. * Hip/pelvis x-ray shows acute nondisplaced left hip intertrochanteric fracture * Appreciate orthopedic surgery consultation * Planning for surgical repair tomorrow * Supportive care. Ice and heat p.r.n.. Analgesics available as needed. * Continue Paiz catheter perioperatively * Care coordination following. She will likely require SNF placement postoperatively (3) Proximal humeral fracture: Qualifiers: Encounter type: initial encounter Fracture type: closed Fracture align ment: displaced Laterality: right Code(s): S42.209A - Unspecified fracture of upper end of unspecified humerus, initial encounter for closed fracture Status: Acute Assessment and Plan: Secondary to a fall which occurred about 2 weeks ago. * She was evaluated this facility * Right humerus x-ray showed nondisplaced right humeral neck fracture extending inferiorly/obliquely * Right arm sling in place. Continue. * Appreciate orthopedic surgery evaluation. She will need to continue with outpatient follow-up (4) Asymptomatic bacteriuria: Code(s): R82.71 - Bacteriuria Status: Acute Assessment and Plan: Urinalysis grossly abnormal on presentation. She denies any urinary symptoms. She is afebrile, no leukocytosis * Received 2 doses IV Levaquin * Will discontinue antibiotics due to lack of clinical symptoms. Await urine culture results and adjust as needed * Blood cultures collected and are pending (5) Seizure disorder: Code(s): G40.909 - Epilepsy, unspecified, not intractable, without status epilepticus Status: Acute Assessment and Plan: She reports she has not had a seizure in over 20 years. * Continue phenytoin * Discontinue seizure precautions (6) Hypothyroidism: Qualifiers: Hypothyroidism type: unspecified Qualified Code(s): E03.9 - Hypothyroidism, unspecified Code(s): E03.9 - Hypothyroidism, unspecified Status: Chronic Assessment and Plan: TSH is within normal limits * Continue levothyroxine Subjective Date/time seen: 01/01/21 15:04 Interval history: Date of service: 01/01/2021 Dejah Simon is a 80-year-old female with a history of hyperlipidemia, hypothyroidism, and seizure disorder who is seen in follow-up for left hip fracture. She reports her hip pain is 5/10 at this time. She does complain of pain in the right arm that she rates as
--- NOTE | 2021-01-01 15:04 | PM.IMPN ---
Progress Note: A&P Assessment and Plan (1) Frequent falls: Code(s): R29.6 - Repeated falls Status: Acute Assessment and Plan: She has been having several falls at home. Had a mechanical fall just prior to presentation from the toilet. She did hit her head but did not lose consciousness. Denied any precipitating symptoms. Reports her legs have been feeling weak Fall precautions implemented Appreciate PT/OT evals Head CT with no acute findings Left knee x-ray with no acute findings. Complains of right-sided chest wall pain. Will obtain bilateral rib x-rays Will check B12, folic acid given her weakness. TSH within normal limits. Check vitamin-D level She will also benefit from an outpatient DEXA scan given falls and fractures. She is on Prolia injections every 6 months. (2) Closed intertrochanteric fracture of left hip: Code(s): S72.142A - Displaced intertrochanteric fracture of left femur, initial encounter for closed fracture Status: Acute Assessment and Plan: Secondary to mechanical fall as described above. Hip/pelvis x-ray shows acute nondisplaced left hip intertrochanteric fracture Appreciate orthopedic surgery consultation Planning for surgical repair tomorrow Supportive care. Ice and heat p.r.n.. Analgesics available as needed. Continue Paiz catheter perioperatively Care coordination following. She will likely require SNF placement postoperatively (3) Proximal humeral fracture: Qualifiers: Encounter type: initial encounter Fracture type: closed Fracture alignment: displaced Laterality: right Code(s): S42.209A - Unspecified fracture of upper end of unspecified humerus, initial encounter for closed fracture Status: Acute Assessment and Plan: Secondary to a fall which occurred about 2 weeks ago. She was evaluated this facility Right humerus x-ray showed nondisplaced right humeral neck fracture extending inferiorly/obliquely Right arm sling in place. Continue. Appreciate orthopedic surgery evaluation. She will need to continue with outpatient follow-up (4) Asymptomatic bacteriuria: Code(s): R82.71 - Bacteriuria Status: Acute Assessment and Plan: Urinalysis grossly abnormal on presentation. She denies any urinary symptoms. She is afebrile, no leukocytosis Received 2 doses IV Levaquin Will discontinue antibiotics due to lack of clinical symptoms. Await urine culture results and adjust as needed Blood cultures collected and are pending (5) Seizure disorder: Code(s): G40.909 - Epilepsy, unspecified, not intractable, without status epilepticus Status: Acute Assessment and Plan: She reports she has not had a seizure in over 20 years. Continue phenytoin Discontinue seizure precautions (6) Hypothyroidism: Qualifiers: Hypothyroidism type: unspecified Qualified Code(s): E03.9 - Hypothyroidism, unspecified Code(s): E03.9 - Hypothyroidism, unspecified Status: Chronic Assessment and Plan: TSH is within normal limits Continue levothyroxine Subjective Date/time seen: 01/01/21 15:04 Interval history: Date of service: 01/01/2021 Dejah Simon is a 80-year-old female with a history of hyperlipidemia, hypothyroidism, and seizure disorder who is seen in follow-up for left hip fracture. She reports her hip pain is 5/10 at this time. She does complain of pain in the right arm that she rates as 8/10 and some pain along the right side lateral chest wall that she states is a 10/10. This pain is worse if she takes a deep breath. She has been feeling weak in her legs. She has no additional concerns at this time. She denies nausea, vomiting, fever, chills, dizziness, lightheadedness, shortness of breath, cough, or chest pain. She had a Paiz catheter put in and is having no issues with this. Her appetite has been good. Review of
[2021-01-01 21:25] VITALS: BP 135/46; PULSE 76; RESP 18; TEMP 36; O2SAT 98
[2021-01-02] VITALS (15 sets, daily range): BP systolic 101–136; BP diastolic 45–89; PULSE 64–82; RESP 12–20; TEMP 35.7–37.4; O2SAT 95–100
[2021-01-02] MEDS: LEVOTHYROXINE SODIUM 75 MCG TABLET PO (05:39)
[2021-01-02 06:17] LABS: Hematocrit 26.3 % (37.0-47.0); Hemoglobin 8.5 g/dL (12.0-15.0); Mean Corpuscular HGB Conc 32.3 g/dl (32-36); Mean Corpuscular Hemoglobin 34.7 pg (26-34); Mean Corpuscular Volume 107.3 fl (80-100); Mean Platelet Volume 10.4 fl (7.4-10.4); Platelet Count Result 119 k/mm3 (150-375); Red Blood Count 2.45 M/mm3 (4.2-5.4); Red Cell Distribution Width 13.8 % (11.5-14.5); White Blood Count 3.8 K/mm3 (4.5-10.0)
[2021-01-02 06:33] LABS: Anion Gap 5 mmol/L (8-16); Blood Urea Nitrogen 15 mg/dL (7-17); Calcium 8.1 mg/dL (8.4-10.2); Carbon Dioxide 29 mmol/L (22-30); Chloride 108 mmol/L (98-107); Estimated CRCL calculation 50 ml/min; Estimated Glomerular Filt Rate > 60; Glucose 103 mg/dL (65-110); Potassium 4.1 mmol/L (3.4-5.0); Sodium 142 mmol/L (137-145)
[2021-01-02 07:37] LABS: Folic Acid 11.7 ng/mL (2.76->20)
--- NOTE | 2021-01-02 07:48 | PCOTNOTE ---
OT orders received for this patient, however she is scheduled for a hip pinning this afternoon. Will be evaluated by OT tomorrow, 01/03.
[2021-01-02] MEDS: PHENYTOIN SODIUM 100 MG CAP 300 MG PO (08:05)
[2021-01-02] MEDS: SIMVASTATIN 20 MG TABLET 40 MG PO (08:05)
[2021-01-02] MEDS: PANTOPRAZOLE 40 MG TABLET PO (08:05)
[2021-01-02] MEDS: GABAPENTIN 400 MG CAPSULE PO ×2 (08:06→17:57)
[2021-01-02] MEDS: CHOLECALCIFEROL 1,000 UNITS TABLET 5000 UNITS PO (08:06)
--- NOTE | 2021-01-02 08:19 | PCPTNOTE ---
PT eval on hold due to pt having surgery today. Will try again tomorrow.
[2021-01-02 10:03] LABS: Vitamin D 25 Hydroxy 27.9 ng/mL
--- NOTE | 2021-01-02 12:38 | WPDHPUPDATE1 ---
History and Physical Update Update Date/Time: 01/02/21 12:38 History and Physical has been reviewed, including an updated exam of the patient. There are NO changes in the patient's condition. Risks, benefits, and alternatives have been discussed and questions answered. Patient agrees to proceed with procedure.
--- NOTE | 2021-01-02 12:44 | WPDANESEPPF ---
Anes - Initial Pre Proc Eval Procedure: Operation Date: 01/02/21 13:00 Proposed Procedures p Left Hip Gamma Nail - Matty Curry MD Date/Time: 01/02/21 12:44 Surgeon: Laura Washington PA-C Pre Op Diagnosis: left hip fracture Patient Data Age: 80 Gender: F Height: 1.55 m Weight: 69.4 kg Last Vital Signs Temp 36.1 C L 01/02/21 04:44 Pulse 72 01/02/21 04:44 Resp 18 01/02/21 04:44 BP 128/46 L 01/02/21 04:44 Pulse Ox 98 01/02/21 04:44 Allergies Allergy/AdvReac Type Severity Reaction Status Date / Time Penicillins Allergy Unknown Hives Verified 01/02/21 12:15 Home Medications Medication Instructions Recorded Confirmed Type lansoprazole 15 mg delayed 15 mg PO DAILY 08/21/19 12/31/20 History release,disintegrating tablet simvastatin 40 mg tablet 40 mg PO DAILY #90 tablet 06/24/20 12/31/20 Rx phenytoin sodium extended 100 mg 300 mg PO DAILY #270 cap 08/05/20 12/31/20 Rx capsule levothyroxine 75 mcg tablet 75 mcg PO DAILY #90 tablet 09/11/20 12/31/20 Rx cholecalciferol (vitamin D3) 125 125 mcg PO DAILY #30 cap 11/26/20 12/31/20 Rx mcg (5,000 unit) capsule denosumab 60 mg/mL subcutaneous 60 mg SUBCUT [id number] #1 ml 11/26/20 12/31/20 Rx syringe meloxicam 15 mg tablet 15 mg PO DAILY 11/26/20 12/31/20 History gabapentin 400 mg capsule 400 mg PO TID #270 cap 12/01/20 12/31/20 Rx Laboratory Tests 01/01/21 01/02/21 01/02/21 11:06 05:16 05:16 WBC 3.8 K/mm3 L K/mm3 (4.5-10.0) RBC 2.45 M/mm3 L M/mm3 (4.2-5.4) Hgb 8.5 g/dL L g/dL (12.0-15.0) Hct 26.3 % L % (37.0-47.0) MCV 107.3 fl H fl (80-100) MCH 34.7 pg H pg (26-34) MCHC 32.3 g/dl g/dl (32-36) RDW 13.8 % % (11.5-14.5) Plt Count 119 k/mm3 L k/mm3 (150-375) MPV 10.4 fl fl (7.4-10.4) Sodium 142 mmol/L mmol/L (137-145) Potassium 4.1 mmol/L mmol/L (3.4-5.0) Chloride 108 mmol/L H mmol/L (98-107) Carbon Dioxide 29 mmol/L mmol/L (22-30) Anion Gap 5 mmol/L L mmol/L (8-16) BUN 15 mg/dL mg/dL (7-17) Creatinine 0.70 mg/dL mg/dL (0.7-1.0) Estim Creat Clear Calc 50 ml/min ml/min Estimated GFR > 60 (59 - ) Glucose 103 mg/dL mg/dL (65-110) Calcium 8.1 mg/dL L mg/dL (8.4-10.2) Vitamin B12 296.0 pg/mL pg/mL (239-931) Vitamin D 25-Hydroxy Folate 11.7 ng/mL ng/mL (2.76->20) TSH (Reflex) Free T4 Blood Type A Positive Antibody Screen Negative 01/02/21 01/02/21 05:16 05:16 WBC RBC Hgb Hct MCV MCH MCHC RDW Plt Count MPV Sodium Potassium Chloride Carbon Dioxide Anion Gap BUN Creatinine Estim Creat Clear Calc Estimated GFR Glucose Calcium Vitamin B12 Vitamin D 25-Hydroxy 27.9 ng/mL ng/mL Folate TSH (Reflex) 5.100 uIU/mL H uIU/mL (0.465-4.68) Free T4 Pending Blood Type Antibody Screen Patient hx anesthesia problems: none Family hx anesthesia problems: none Results Review: All pre-operative results and documents have been reviewed as part of the pre-operative evaluation. [facility] Past Medical History Medical History Age related osteoporosis Chronic midline low back pain without sciatica GERD (gastroesophageal reflux disease) Hyperlipidemia Hypothyroidism Overactive bladder Peripheral sensory neuropathy Seizure disorder Vitamin D deficiency Surgical History Surgical History Hx of cataract extraction Family History Family Histor
[2021-01-02] MEDS: LACTATED RINGERS 1,000 ML 30 ML IV CONT (12:55)
[2021-01-02] MEDS: ceFAZolin SODIUM 1 GM VIAL 2 GM IV PUSH (13:34)
--- NOTE | 2021-01-02 14:38 | W.PM.PROC2 ---
Procedure Note - Detailed Date of Procedure 01/02/21 Pre-op Diagnosis left hip fracture Post-op Diagnosis same Procedure Performed INSERTION GAMMA DAVIAN LEFT HIP Surgeon Matty Curry MD Anesthesia general Description of Procedure THE PATIENT WAS TAKEN TO THE OPERATING ROOM AND PLACED ON A FRACTURE TABLE AFTER GIVEN GENERAL ANESTHESIA. THE LEFT LOWER EXTREMITY WAS PLACED IN A TRACTION BOOT AND USING SOME TRACTION AND INTERNAL ROTATION THE INNER TROCHANTERIC FRACTURE WAS REDUCED TO ANATOMIC POSITION. NEXT THE LEFT LOWER EXTREMITY WAS PREPPED AND DRAPED IN THE STERILE FASHION. AN INCISION WAS MADE PROXIMAL TO THE TIP OF THE GREATER TROCHANTER AND DISSECTION CONTINUED TILL THE TIP OF THE GREATER TROCHANTER WAS PALPATED. A GUIDE PIN WAS PLACED DOWN THE FEMORAL CANAL AND PAST THE FRACTURE SITE. THIS WAS CHECKED ON FLUOROSCOPY AND FOUND TO BE IN GOOD POSITION. AN INITIAL REAMER WAS USED TO REAM THE FEMORAL CANAL. A 11 BY 180 MM GAMMA DAVIAN WAS INSERTED TILL THE CORRECT POSITION WAS IDENTIFIED ON XRAY. A GUIDE PIN WAS INSERTED THROUGH THE FEMORAL NECK AT [address] TILL IT REACHED THE TIP OF THE SUB CHONDRAL BONE SEEN ON XRAY. AFTER REAMING, LAG SCREW WAS INSERTED MEASURING 90 MM. XRAYS SHOWED IT TO BE IN GOOD POSITION. THE LAG SCREW WAS LOCKED PROXIMALLY WITH A LOCKING SCREW. NEXT A DISTAL LOCKING SCREW WAS PLACED ACROSS THE DAVIAN AND WAS IN GOOD POSITION ON XRAY. THE TRACTION WAS RELEASED. THE WOUNDS WERE WASHED. THE DEEP FASCIA WAS REPAIRED WITH 0 VICRYL SUTURE, THE SUB CUTANEOUS LAYER WITH 2-0 VICRYL, AND THE SKIN WITH HI. THE WOUNDS WERE WASHED AND THEN STERILE DRESSING WAS APPLIED. PATIENT WAS EXTUBATED AND SENT TO RECOVERY ROOM. Estimated Blood Loss 100 Urine Output 1,600 Complications No immediate complications Condition stable Disposition PACU
[2021-01-02] MEDS: fentaNYL CITRATE INJ (*CRX) 100 MCG/2 ML VIAL 25 MCG IV PUSH ×5 (14:50→16:00)
[2021-01-02 16:54] LABS: Free T4 Free Thyroxine Reflex 1.26 ng/dL (0.78-2.19)
--- NOTE | 2021-01-02 17:12 | P.PNIM_ITS ---
Progress Note: A&P Assessment and Plan (1) Frequent falls: Code(s): R29.6 - Repeated falls Status: Acute Assessment and Plan: She has been having several falls at home. Had a mechanical fall just prior to presentation from the toilet. She did hit her head but did not lose consciousness. Denied any precipitating symptoms. Reports her legs have been feeling weak * Fall precautions implemented * Appreciate PT/OT evals * Head CT with no acute findings * Left knee x-ray with no acute findings. * Complains of right-sided chest wall pain. Will obtain bilateral rib x-rays * B12 296, folic acid 11.7. TSH 5100. vitamin-D level 27.9 all within normal limits * She will also benefit from an outpatient DEXA scan given falls and fractures. She is on Prolia injections every 6 months. (2) Closed intertrochanteric fracture of left hip: Code(s): S72.142A - Displaced intertrochanteric fracture of left femur, initial encounter for closed fracture Status: Acute Assessment and Plan: Secondary to mechanical fall as described above. * Hip/pelvis x-ray shows acute nondisplaced left hip intertrochanteric fracture * Appreciate orthopedic surgery consultation * ortho to manage post care * surgical repair 01/02 * Supportive care. Analgesics available as needed. * Continue Paiz catheter perioperatively * Care coordination following. She will likely require SNF placement postoperatively (3) Proximal humeral fracture: Qualifiers: Encounter type: initial encounter Fracture type: closed Fracture alignment: displaced Laterality: right Code(s): S42.209A - Unspecified fracture of upper end of unspecified humerus, initial encounter for closed fracture Status: Acute Assessment and Plan: Secondary to a fall which occurred about 2 weeks ago. * She was evaluated this facility * Right humerus x-ray showed nondisplaced right humeral neck fracture extending inferiorly/obliquely * Right arm sling in place. Continue. * Appreciate orthopedic surgery evaluation. She will need to continue with outpatient follow-up (4) Asymptomatic bacteriuria: Code(s): R82.71 - Bacteriuria Status: Acute Assessment and Plan: Urinalysis grossly abnormal on presentation. She denies any urinary symptoms. She is afebrile, no leukocytosis Could be the reason for the frequent falls. * Received 2 doses IV Levaquin, will continue for 3 more days * Will discontinue antibiotics due to lack of clinical symptoms. * urine culture found E coli still no complaints of urinary dysfunction * Patient getting Ancef per surgery * Blood cultures negative today (5) Seizure disorder: Code(s): G40.909 - Epilepsy, unspecified, not intractable, without status epilepticus Status: Acute Assessment and Plan: She reports she has not had a seizure in over 20 years. * Continue phenytoin * Discontinue seizure precautions (6) Hypothyroidism: Qualifiers: Hypothyroidism type: unspecified Qualified Code(s): E03.9 - Hypothyroidism, unspecified Code(s): E03.9 - Hypothyroidism, unspecified Status: Chronic Assessment and Plan: TSH is within normal limits * Continue levothyroxine Subjective Date/time seen: 01/02/21 16:45 Interval history: Patient is a 80-year-old female who is here after a mechanical fall. Patient had a surgical repair today and upon examination she is very drowsy. She did tell me that she was having pain mainly in her left
--- NOTE | 2021-01-02 17:12 | PM.IMPN ---
Progress Note: A&P Assessment and Plan (1) Frequent falls: Code(s): R29.6 - Repeated falls Status: Acute Assessment and Plan: She has been having several falls at home. Had a mechanical fall just prior to presentation from the toilet. She did hit her head but did not lose consciousness. Denied any precipitating symptoms. Reports her legs have been feeling weak Fall precautions implemented Appreciate PT/OT evals Head CT with no acute findings Left knee x-ray with no acute findings. Complains of right-sided chest wall pain. Will obtain bilateral rib x-rays B12 296, folic acid 11.7. TSH 5100. vitamin-D level 27.9 all within normal limits She will also benefit from an outpatient DEXA scan given falls and fractures. She is on Prolia injections every 6 months. (2) Closed intertrochanteric fracture of left hip: Code(s): S72.142A - Displaced intertrochanteric fracture of left femur, initial encounter for closed fracture Status: Acute Assessment and Plan: Secondary to mechanical fall as described above. Hip/pelvis x-ray shows acute nondisplaced left hip intertrochanteric fracture Appreciate orthopedic surgery consultation ortho to manage post care surgical repair 01/02 Supportive care. Analgesics available as needed. Continue Paiz catheter perioperatively Care coordination following. She will likely require SNF placement postoperatively (3) Proximal humeral fracture: Qualifiers: Encounter type: initial encounter Fracture type: closed Fracture alignment: displaced Laterality: right Code(s): S42.209A - Unspecified fracture of upper end of unspecified humerus, initial encounter for closed fracture Status: Acute Assessment and Plan: Secondary to a fall which occurred about 2 weeks ago. She was evaluated this facility Right humerus x-ray showed nondisplaced right humeral neck fracture extending inferiorly/obliquely Right arm sling in place. Continue. Appreciate orthopedic surgery evaluation. She will need to continue with outpatient follow-up (4) Asymptomatic bacteriuria: Code(s): R82.71 - Bacteriuria Status: Acute Assessment and Plan: Urinalysis grossly abnormal on presentation. She denies any urinary symptoms. She is afebrile, no leukocytosis Could be the reason for the frequent falls. Received 2 doses IV Levaquin, will continue for 3 more days Will discontinue antibiotics due to lack of clinical symptoms. urine culture found E coli still no complaints of urinary dysfunction Patient getting Ancef per surgery Blood cultures negative today (5) Seizure disorder: Code(s): G40.909 - Epilepsy, unspecified, not intractable, without status epilepticus Status: Acute Assessment and Plan: She reports she has not had a seizure in over 20 years. Continue phenytoin Discontinue seizure precautions (6) Hypothyroidism: Qualifiers: Hypothyroidism type: unspecified Qualified Code(s): E03.9 - Hypothyroidism, unspecified Code(s): E03.9 - Hypothyroidism, unspecified Status: Chronic Assessment and Plan: TSH is within normal limits Continue levothyroxine Subjective Date/time seen: 01/02/21 16:45 Interval history: Patient is a 80-year-old female who is here after a mechanical fall. Patient had a surgical repair today and upon examination she is very drowsy. She did tell me that she was having pain mainly in her left hip. She also stated that she is tired wore out. She denied chest pain and shortness of breath that is about much as she would tell me. Patient did have her right arm in a sling her left hip was stressed and the dressings were dry but no shadowing. Exam Const: General: cooperative, healthy appearing, comfortable, no acute distress, well developed, alert, awake and Physically active Nutritional Appearance: average body habitus and thin
[2021-01-02] MEDS: MORPHINE SULFATE (*CRX) 4 MG/ML INJ 3 MG IV PUSH (17:52)
[2021-01-02] MEDS: DOCUSATE SODIUM 100 MG CAPSULE PO (17:57)
[2021-01-02 18:02] LABS: Total Triiodothyronine (T3) 0.83 NG/ML (0.97-1.69)
[2021-01-02] MEDS: ceFAZolin 2 GM/D5W 50 ML 2 GM/50 ML BAG IVPB (20:36)
[2021-01-02] MEDS: levoFLOXacin 250 MG TABLET PO (20:36)
[2021-01-02] MEDS: FAMOTIDINE 20 MG TABLET PO (20:37)
[2021-01-03] VITALS (7 sets, daily range): BP systolic 89–110; BP diastolic 25–50; PULSE 82–95; RESP 14–18; TEMP 36.4–37.4; O2SAT 95–99; BMI 10.0
[2021-01-03] MEDS: ceFAZolin 2 GM/D5W 50 ML 2 GM/50 ML BAG IVPB ×2 (04:18→13:27)
[2021-01-03 05:31] LABS: Anion Gap 8 mmol/L (8-16); Blood Urea Nitrogen 14 mg/dL (7-17); Calcium 7.7 mg/dL (8.4-10.2); Carbon Dioxide 26 mmol/L (22-30); Chloride 105 mmol/L (98-107); Estimated CRCL calculation 58 ml/min; Estimated Glomerular Filt Rate > 60; Glucose 109 mg/dL (65-110); Potassium 4.1 mmol/L (3.4-5.0); Sodium 139 mmol/L (137-145)
[2021-01-03 05:35] LABS: Basophils Percent Auto 0.6 % (0.2-1.2); Eosinophils Percent Auto 0.4 % (0-4.4); Hematocrit 27.8 % (37.0-47.0); Hemoglobin 8.6 g/dL (12.0-15.0); Immature Granulocyte Absolute 0.02 K/mm3 (0.00-0.031); Immature Granulocyte Percent A 0.4 % (0-0.5); Lymphocytes Percent Auto 12.9 % (18.3-44.2); Mean Corpuscular HGB Conc 30.9 g/dl (32-36); Mean Corpuscular Hemoglobin 34.7 pg (26-34); Mean Corpuscular Volume 112.1 fl (80-100); Mean Platelet Volume 10.5 fl (7.4-10.4); Monocytes Absolute Auto 0.5 K/mm3 (0.1-0.6); Monocytes Percent Auto 9.4 % (2.6-8.5); Neutrophils Absolute Auto 4.2 K/mm3 (1.3-6.7); Neutrophils Percent Auto 76.3 % (45.5-73.1); Platelet Count Result 109 k/mm3 (150-375); Red Blood Count 2.48 M/mm3 (4.2-5.4); Red Cell Distribution Width 13.7 % (11.5-14.5); White Blood Count 5.4 K/mm3 (4.5-10.0)
[2021-01-03] MEDS: HYDROcodone/acetaminophen (*CRX) 7.5-325 MG TABLET 1 TAB PO (06:00)
[2021-01-03] MEDS: LEVOTHYROXINE SODIUM 75 MCG TABLET PO (06:01)
--- NOTE | 2021-01-03 08:08 | P.PNIM_ITS ---
Progress Note: A&P Assessment and Plan (1) Frequent falls: Code(s): R29.6 - Repeated falls Status: Acute Assessment and Plan: She has been having several falls at home. Had a mechanical fall just prior to presentation from the toilet. She did hit her head but did not lose consciousness. Denied any precipitating symptoms. Reports her legs have been feeling weak * Fall precautions implemented * Appreciate PT/OT evals * Head CT with no acute findings * Left knee x-ray with no acute findings. * Complained in past days of right-sided chest wall pain. CXR without concern. No compaints of pain or chest wall pain today. * B12 296, folic acid 11.7. TSH 5100. vitamin-D level 27.9 all within normal limits * She will also benefit from an outpatient DEXA scan given falls and fractures. She is on Prolia injections every 6 months. (2) Closed intertrochanteric fracture of left hip: Code(s): S72.142A - Displaced intertrochanteric fracture of left femur, initial encounter for closed fracture Status: Acute Assessment and Plan: Secondary to mechanical fall as described above. * Hip/pelvis x-ray shows acute nondisplaced left hip intertrochanteric fracture * Appreciate orthopedic surgery consultation * ortho to manage post care * surgical repair 01/02 * Supportive care. Analgesics available as needed.PT/OT. * Continue Paiz catheter perioperatively - will d/c when able to safely transfer to [facility]. * Care coordination following. She will likely require SNF placement postoperatively (3) Proximal humeral fracture: Qualifiers: Encounter type: initial encounter Fracture alignment: displaced Fracture type: closed Laterality: right Code(s): S42.209A - Unspecified fracture of upper end of unspecified humerus, initial encounter for closed fracture Status: Acute Assessment and Plan: Secondary to a fall which occurred about 2 weeks ago. * She was evaluated this facility * Right humerus x-ray showed nondisplaced right humeral neck fracture extending inferiorly/obliquely * Right arm sling in place. Continue pain control, sling wear and rest, and PT/OT when appropriate. * Appreciate orthopedic surgery evaluation. She will need to continue with outpatient follow-up (4) Asymptomatic bacteriuria: Code(s): R82.71 - Bacteriuria Status: Acute Assessment and Plan: Urinalysis grossly abnormal on presentation. She denies any urinary symptoms. She is afebrile, no leukocytosis Could be the reason for the frequent falls. * Received 1 dose IV Levaquin, will continue for 3 more days, last dose on Jan.04. * Will discontinue antibiotics due to lack of clinical symptoms. * urine culture found E coli still no complaints of urinary dysfunction * Patient getting Ancef per surgery * Blood cultures negative (5) Seizure disorder: Code(s): G40.909 - Epilepsy, unspecified, not intractable, without status epilepticus Status: Acute Assessment and Plan: She reports she has not had a seizure in over 20 years. * Continue phenytoin * Discontinue seizure precautions (6) Hypothyroidism: Qualifiers: Hypothyroidism type: unspecified Qualified Code(s): E03.9 - Hypothyroidism, unspecified Code(s): E03.9 - Hypothyroidism, unspecified Status: Chronic Assessment and Plan: TSH is within normal limits * Continue levothyroxine Subjective Date/time seen: 01/03/21 08:08 Interval history: Sivan
--- NOTE | 2021-01-03 08:08 | PM.IMPN ---
Progress Note: A&P Assessment and Plan (1) Frequent falls: Code(s): R29.6 - Repeated falls Status: Acute Assessment and Plan: She has been having several falls at home. Had a mechanical fall just prior to presentation from the toilet. She did hit her head but did not lose consciousness. Denied any precipitating symptoms. Reports her legs have been feeling weak Fall precautions implemented Appreciate PT/OT evals Head CT with no acute findings Left knee x-ray with no acute findings. Complained in past days of right-sided chest wall pain. CXR without concern. No compaints of pain or chest wall pain today. B12 296, folic acid 11.7. TSH 5100. vitamin-D level 27.9 all within normal limits She will also benefit from an outpatient DEXA scan given falls and fractures. She is on Prolia injections every 6 months. (2) Closed intertrochanteric fracture of left hip: Code(s): S72.142A - Displaced intertrochanteric fracture of left femur, initial encounter for closed fracture Status: Acute Assessment and Plan: Secondary to mechanical fall as described above. Hip/pelvis x-ray shows acute nondisplaced left hip intertrochanteric fracture Appreciate orthopedic surgery consultation ortho to manage post care surgical repair 01/02 Supportive care. Analgesics available as needed.PT/OT. Continue Paiz catheter perioperatively - will d/c when able to safely transfer to [facility]. Care coordination following. She will likely require SNF placement postoperatively (3) Proximal humeral fracture: Qualifiers: Encounter type: initial encounter Fracture alignment: displaced Fracture type: closed Laterality: right Code(s): S42.209A - Unspecified fracture of upper end of unspecified humerus, initial encounter for closed fracture Status: Acute Assessment and Plan: Secondary to a fall which occurred about 2 weeks ago. She was evaluated this facility Right humerus x-ray showed nondisplaced right humeral neck fracture extending inferiorly/obliquely Right arm sling in place. Continue pain control, sling wear and rest, and PT/OT when appropriate. Appreciate orthopedic surgery evaluation. She will need to continue with outpatient follow-up (4) Asymptomatic bacteriuria: Code(s): R82.71 - Bacteriuria Status: Acute Assessment and Plan: Urinalysis grossly abnormal on presentation. She denies any urinary symptoms. She is afebrile, no leukocytosis Could be the reason for the frequent falls. Received 1 dose IV Levaquin, will continue for 3 more days, last dose on Jan.04. Will discontinue antibiotics due to lack of clinical symptoms. urine culture found E coli still no complaints of urinary dysfunction Patient getting Ancef per surgery Blood cultures negative (5) Seizure disorder: Code(s): G40.909 - Epilepsy, unspecified, not intractable, without status epilepticus Status: Acute Assessment and Plan: She reports she has not had a seizure in over 20 years. Continue phenytoin Discontinue seizure precautions (6) Hypothyroidism: Qualifiers: Hypothyroidism type: unspecified Qualified Code(s): E03.9 - Hypothyroidism, unspecified Code(s): E03.9 - Hypothyroidism, unspecified Status: Chronic Assessment and Plan: TSH is within normal limits Continue levothyroxine Subjective Date/time seen: 01/03/21 08:08 Interval history: Patient is a 80-year-old female who is here after a mechanical fall, history of multiple falls. Patient had a surgical left hip repair yesterday on 01/02 and upon examination she is alert today, reports that she already sat on the edge of her bed this morning with PT. She does have pain to her right arm and left hip with therapy and repositioning. She denies any SOB, leg or calf pain, denies chest pain. Patient continues to require 2 L O2 NC, does have her right
[2021-01-03] MEDS: DOCUSATE SODIUM 100 MG CAPSULE PO ×2 (08:11→18:10)
[2021-01-03] MEDS: FONDAPARINUX SODIUM 2.5 MG/0.5 ML SYRINGE SUB-Q (08:11)
[2021-01-03] MEDS: CHOLECALCIFEROL 1,000 UNITS TABLET 5000 UNITS PO (08:11)
[2021-01-03] MEDS: PHENYTOIN SODIUM 100 MG CAP 300 MG PO (08:12)
[2021-01-03] MEDS: SIMVASTATIN 20 MG TABLET 40 MG PO (08:12)
[2021-01-03] MEDS: FAMOTIDINE 20 MG TABLET PO ×2 (08:12→20:23)
[2021-01-03] MEDS: PANTOPRAZOLE 40 MG TABLET PO (08:12)
[2021-01-03] MEDS: GABAPENTIN 400 MG CAPSULE PO ×3 (08:12→18:10)
[2021-01-03] MEDS: levoFLOXacin 250 MG TABLET PO (18:10)
[2021-01-04] VITALS (7 sets, daily range): BP systolic 95–110; BP diastolic 36–50; PULSE 86–92; RESP 14–20; TEMP 36.2–37.1; O2SAT 96–97; BMI 10.0
[2021-01-04] MEDS: HYDROcodone/acetaminophen (*CRX) 7.5-325 MG TABLET 1 TAB PO ×2 (03:16→11:41)
[2021-01-04 05:14] LABS: Hematocrit 22.3 % (37.0-47.0); Hemoglobin 7.4 g/dL (12.0-15.0); Mean Corpuscular HGB Conc 33.2 g/dl (32-36); Mean Corpuscular Hemoglobin 35.2 pg (26-34); Mean Corpuscular Volume 106.2 fl (80-100); Mean Platelet Volume 10.3 fl (7.4-10.4); Platelet Count Result 113 k/mm3 (150-375); Red Cell Distribution Width 13.6 % (11.5-14.5)
[2021-01-04] MEDS: LEVOTHYROXINE SODIUM 75 MCG TABLET PO (05:35)
[2021-01-04 05:41] LABS: Anion Gap 4 mmol/L (8-16); Blood Urea Nitrogen 17 mg/dL (7-17); Calcium 7.8 mg/dL (8.4-10.2); Carbon Dioxide 32 mmol/L (22-30); Chloride 101 mmol/L (98-107); Estimated CRCL calculation 50 ml/min; Estimated Glomerular Filt Rate > 60; Glucose 143 mg/dL (65-110); Potassium 4.1 mmol/L (3.4-5.0); Sodium 137 mmol/L (137-145)
--- NOTE | 2021-01-04 08:54 | P.PNIM_ITS ---
Progress Note: A&P Assessment and Plan (1) Frequent falls: Code(s): R29.6 - Repeated falls Status: Acute Assessment and Plan: She has been having several falls at home. Had a mechanical fall just prior to presentation from the toilet. She did hit her head but did not lose consciousness. Denied any precipitating symptoms. Reports her legs have been feeling weak * Fall precautions implemented * PT is having some difficulty getting the patient to transfer to a chair using the slide board. * Planning for D/C of urine perea once patient able to transfer to [facility]. * Head CT with no acute findings * Left knee x-ray with no acute findings. * Complained in past days of right-sided chest wall pain. CXR without concern. No compaints of pain or chest wall pain today. * B12 296, folic acid 11.7. TSH 5100. vitamin-D level 27.9 all within normal limits * She will also benefit from an outpatient DEXA scan given falls and fractures. She is on Prolia injections every 6 months. (2) Closed intertrochanteric fracture of left hip: Code(s): S72.142A - Displaced intertrochanteric fracture of left femur, initial encounter for closed fracture Status: Acute Assessment and Plan: Secondary to mechanical fall as described above. * Hip/pelvis x-ray shows acute nondisplaced left hip intertrochanteric fracture * Appreciate orthopedic surgery consultation * ortho to manage post care * surgical repair 01/02 * Supportive care. Analgesics available as needed.PT/OT. * Continue Perea catheter perioperatively - will d/c when able to safely transfer to [facility]. * Care coordination following. She will likely require SNF placement postoperatively (3) Proximal humeral fracture: Qualifiers: Encounter type: initial encounter Fracture alignment: displaced Fracture type: closed Laterality: right Code(s): S42.209A - Unspecified fracture of upper end of unspecified humerus, initial encounter for closed fracture Status: Acute Assessment and Plan: Secondary to a fall which occurred about 2 weeks ago. * She was evaluated this facility * Right humerus x-ray showed nondisplaced right humeral neck fracture extending inferiorly/obliquely * Right arm sling in place. Continue pain control, sling wear and rest, and PT/OT when appropriate. * Appreciate orthopedic surgery evaluation. She will need to continue with outpatient follow-up (4) Asymptomatic bacteriuria: Code(s): R82.71 - Bacteriuria Status: Acute Assessment and Plan: Urinalysis grossly abnormal on presentation. She denies any urinary symptoms. She is afebrile, no leukocytosis Could be the reason for the frequent falls. * Received 1 dose IV Levaquin, will continue for 3 more days, last dose on Jan.04. * Will discontinue antibiotics due to lack of clinical symptoms. * urine culture found E coli still no complaints of urinary dysfunction * Patient getting Ancef per surgery * Blood cultures negative (5) Seizure disorder: Code(s): G40.909 - Epilepsy, unspecified, not intractable, without status epilepticus Status: Acute Assessment and Plan: She reports she has not had a seizure in over 20 years. * Continue phenytoin * Discontinue seizure precautions (6) Hypothyroidism: Qualifiers: Hypothyroidism type: unspecified Qualified Code(s): E03.9 - Hypothyroidism, unspecified Code(s): E03.9 - Hypothyroidism, unspecified Status: Chronic Assessment and Plan: TSH is within normal limits * Continu
--- NOTE | 2021-01-04 08:54 | PM.IMPN ---
Progress Note: A&P Assessment and Plan (1) Frequent falls: Code(s): R29.6 - Repeated falls Status: Acute Assessment and Plan: She has been having several falls at home. Had a mechanical fall just prior to presentation from the toilet. She did hit her head but did not lose consciousness. Denied any precipitating symptoms. Reports her legs have been feeling weak Fall precautions implemented PT is having some difficulty getting the patient to transfer to a chair using the slide board. Planning for D/C of urine perea once patient able to transfer to [facility]. Head CT with no acute findings Left knee x-ray with no acute findings. Complained in past days of right-sided chest wall pain. CXR without concern. No compaints of pain or chest wall pain today. B12 296, folic acid 11.7. TSH 5100. vitamin-D level 27.9 all within normal limits She will also benefit from an outpatient DEXA scan given falls and fractures. She is on Prolia injections every 6 months. (2) Closed intertrochanteric fracture of left hip: Code(s): S72.142A - Displaced intertrochanteric fracture of left femur, initial encounter for closed fracture Status: Acute Assessment and Plan: Secondary to mechanical fall as described above. Hip/pelvis x-ray shows acute nondisplaced left hip intertrochanteric fracture Appreciate orthopedic surgery consultation ortho to manage post care surgical repair 01/02 Supportive care. Analgesics available as needed.PT/OT. Continue Perea catheter perioperatively - will d/c when able to safely transfer to [facility]. Care coordination following. She will likely require SNF placement postoperatively (3) Proximal humeral fracture: Qualifiers: Encounter type: initial encounter Fracture alignment: displaced Fracture type: closed Laterality: right Code(s): S42.209A - Unspecified fracture of upper end of unspecified humerus, initial encounter for closed fracture Status: Acute Assessment and Plan: Secondary to a fall which occurred about 2 weeks ago. She was evaluated this facility Right humerus x-ray showed nondisplaced right humeral neck fracture extending inferiorly/obliquely Right arm sling in place. Continue pain control, sling wear and rest, and PT/OT when appropriate. Appreciate orthopedic surgery evaluation. She will need to continue with outpatient follow-up (4) Asymptomatic bacteriuria: Code(s): R82.71 - Bacteriuria Status: Acute Assessment and Plan: Urinalysis grossly abnormal on presentation. She denies any urinary symptoms. She is afebrile, no leukocytosis Could be the reason for the frequent falls. Received 1 dose IV Levaquin, will continue for 3 more days, last dose on Jan.04. Will discontinue antibiotics due to lack of clinical symptoms. urine culture found E coli still no complaints of urinary dysfunction Patient getting Ancef per surgery Blood cultures negative (5) Seizure disorder: Code(s): G40.909 - Epilepsy, unspecified, not intractable, without status epilepticus Status: Acute Assessment and Plan: She reports she has not had a seizure in over 20 years. Continue phenytoin Discontinue seizure precautions (6) Hypothyroidism: Qualifiers: Hypothyroidism type: unspecified Qualified Code(s): E03.9 - Hypothyroidism, unspecified Code(s): E03.9 - Hypothyroidism, unspecified Status: Chronic Assessment and Plan: TSH is within normal limits Continue levothyroxine Subjective Date/time seen: 01/04/21 08:54 Interval history: Patient is a 80-year-old female who is here after a mechanical fall, history of multiple falls. Patient had a surgical left hip repair on 01/02 and upon examination she is alert today, reports that she already sat on the edge of her bed this morning as well as yesterday with PT. She does have pain to her right arm and left hip during P
[2021-01-04] MEDS: FONDAPARINUX SODIUM 2.5 MG/0.5 ML SYRINGE SUB-Q (09:24)
[2021-01-04] MEDS: GABAPENTIN 400 MG CAPSULE PO ×3 (09:24→17:42)
[2021-01-04] MEDS: DOCUSATE SODIUM 100 MG CAPSULE PO ×2 (09:24→17:41)
[2021-01-04] MEDS: CHOLECALCIFEROL 1,000 UNITS TABLET 5000 UNITS PO (09:24)
[2021-01-04] MEDS: FAMOTIDINE 20 MG TABLET PO ×2 (09:24→20:11)
[2021-01-04] MEDS: PANTOPRAZOLE 40 MG TABLET PO (09:24)
[2021-01-04] MEDS: PHENYTOIN SODIUM 100 MG CAP 300 MG PO (09:25)
[2021-01-04] MEDS: SIMVASTATIN 20 MG TABLET 40 MG PO (09:25)
--- NOTE | 2021-01-04 16:56 | WPDPN ---
Progress Note: A&P Additional Plan POD 2 DOING WELL. SHE HAS SLOW PROGRESS WITH PT. HER HGB IS 7.4 BUT SHE IS ASYMPTOMATIC. WILL WATCH HGB TODAY AND CHECK IN THE AM. Subjective Date/time seen: 01/04/21 16:56 POD 2 DOING WELL. NO CALF PAIN Exam Extrem: Other: VSS AFEBRILE DRESSING DRY NV INTACT NEG HOMANS SIGN, NV INTACT Objective Data Vital Signs Vital Signs: Vital Signs - 24 hr 01/03/21 18:00 01/03/21 20:39 01/04/21 02:00 Temperature 36.9 C 37.1 C 37.1 C Pulse Rate 95 93 92 Respiratory Rate 16 18 14 Blood Pressure 96/25 L 110/40 L 95/42 L Pulse Oximetry 98 99 96 01/04/21 06:00 01/04/21 10:00 01/04/21 14:00 Temperature 36.7 C 36.4 C 36.2 C L Pulse Rate 86 86 88 Respiratory Rate 20 20 18 Blood Pressure 102/40 L 110/42 L 102/36 L Pulse Oximetry 96 97 97 01/04/21 14:22 Temperature Pulse Rate Respiratory Rate Blood Pressure 110/44 L Pulse Oximetry Intake/Output Intake/Output: Intake & Output 01/01/21 01/02/21 01/03/21 01/04/21 23:59 23:59 23:59 23:59 Intake Total 3850 250 1080 1000 Output Total 2150 3895 975 1000 Balance 1700 -3645 105 0 Meds/Results Medications: Active Medications Generic Name Dose Route Start Last Admin Trade Name Freq PRN Reason Stop Dose Admin Acetaminophen 650 mg 01/02/21 16:08 Acetaminophen 325 Mg Tablet PO Q6H PRN Mild Pain (1-3) or Fever Hydrocodone Bitart/Acetaminophen 1 tab 01/02/21 16:08 01/04/21 11:41 Hydrocodone/Acetaminophen (*Crx) 7.5-325 Mg Tablet PO 1 tab Q3H PRN Administration Pain Rated 4-6 Diazepam 5 mg 01/02/21 16:08 Diazepam (*Crx) 5 Mg Tablet PO Q8H PRN Muscle Spasm Docusate Sodium 100 mg 01/02/21 17:00 01/04/21 09:24 Docusate Sodium 100 Mg Capsule PO 100 mg BID VAIBHAV Administration Famotidine 20 mg 01/02/21 21:00 01/04/21 09:24 Famotidine 20 Mg Tablet PO 20 mg Q12HR VAIBHAV Administration Fentanyl Citrate 25 mcg 12/31/20 20:48 Fentanyl Citrate Inj (*Crx) 100 Mcg/2 Ml Vial IV PUSH Q4H PRN Pain Rated 7-10 Fondaparinux 2.5 mg 01/03/21 09:00 01/04/21 09:24 Fondaparinux Sodium 2.5 Mg/0.5 Ml Syringe SUB-Q 2.5 mg DAILY VAIBHAV Administration Gabapentin 400 mg 01/01/21 09:00 01/04/21 12:37 Gabapentin 400 Mg Capsule PO 400 mg TID VAIBHAV Administration Levofloxacin 250 mg 01/02/21 18:00 01/03/21 18:10 Levofloxacin 250 Mg Tablet PO 01/04/21 18:01 250 mg QPM VAIBHAV Administration Levothyroxine Sodium 75 mcg 01/01/21 06:30 01/04/21 05:35 Levothyroxine Sodium 75 Mcg Tablet PO 75 mcg DAILY@0630 VAIBHAV Administration Magnesium Hydroxide 30 ml 01/02/21 16:08 Magnesium Hydroxide Susp 30 Ml Udc PO BID PRN Constipation Morphine Sulfate 3 mg 01/02/21 16:08 01/02/21 17:52 Morphine Sulfate (*Crx) 4 Mg/Ml Inj IV PUSH 3 mg Q3H PRN Administration Pain Rated 7-10 Naloxone HCl 0.1 mg 01/02/21 16:08 Naloxone Hcl 0.4 Mg/Ml Vial IV PUSH Q2M PRN Opiate Reversal Ondansetron HCl 4 mg 01/02/21 16:08 Ondansetron Inj 4 Mg/2 Ml Vial IV PUSH Q4H PRN Nausea And Vomiting Pantoprazole Sodium 40 mg 01/01/21 09:00 01/04/21 09:24 Pantoprazole 40 Mg Tablet PO 40 mg QAM VAIBHAV Administration Phenytoin Sodium 300 mg 01/01/21 09:00 01/04/21 09:25 Phenytoin Sodium 100 Mg Cap PO 300 mg DAILY VAIBHAV Administration Simvastatin 40 mg 01/01/21 09:00 01/04/21 09:25 Simvastatin 20 Mg Tablet PO 40 mg DAILY VAIBHAV Administration Vitamin D 5,000 units 01/01/21 09:00 01/04/21 09:24 Cholecalciferol 1,000 Units Tablet PO 5,000 units DAILY VAIBHAV Administration Radiology Results: ITS Impressions Head CT 12/31/20 09:08 IMPRESSION: 1. No acute intracranial findings. 2. Chronic age related findings. Hip/Pelvis X-Ray 12/31/20 09:28 IMPRESSION: Acute nondisplaced left hip intertrochanteric fracture. Knee X-Ray 12/31/20 09:31 IMPRESSION: 1. Left kn
[2021-01-04] MEDS: levoFLOXacin 250 MG TABLET PO (17:42)
[2021-01-05] VITALS (7 sets, daily range): BP systolic 98–110; BP diastolic 40–58; PULSE 77–97; RESP 16–18; TEMP 36.2–37.3; O2SAT 95–96
[2021-01-05 05:53] LABS: Hematocrit 23.3 % (37.0-47.0); Hemoglobin 7.5 g/dL (12.0-15.0); Mean Corpuscular HGB Conc 32.2 g/dl (32-36); Mean Corpuscular Hemoglobin 33.8 pg (26-34); Mean Platelet Volume 10.4 fl (7.4-10.4); Platelet Count Result 132 k/mm3 (150-375); Red Blood Count 2.22 M/mm3 (4.2-5.4); Red Cell Distribution Width 13.9 % (11.5-14.5); White Blood Count 4.7 K/mm3 (4.5-10.0)
[2021-01-05 06:07] LABS: Anion Gap 3 mmol/L (8-16); Blood Urea Nitrogen 14 mg/dL (7-17); Calcium 8.4 mg/dL (8.4-10.2); Carbon Dioxide 32 mmol/L (22-30); Chloride 107 mmol/L (98-107); Estimated CRCL calculation 68 ml/min; Estimated Glomerular Filt Rate > 60; Glucose 143 mg/dL (65-110); Potassium 4.2 mmol/L (3.4-5.0); Sodium 142 mmol/L (137-145)
[2021-01-05] MEDS: LEVOTHYROXINE SODIUM 75 MCG TABLET PO (06:17)
[2021-01-05] MEDS: DOCUSATE SODIUM 100 MG CAPSULE PO ×2 (08:12→16:59)
[2021-01-05] MEDS: CHOLECALCIFEROL 1,000 UNITS TABLET 5000 UNITS PO (08:12)
[2021-01-05] MEDS: SIMVASTATIN 20 MG TABLET 40 MG PO (08:13)
[2021-01-05] MEDS: GABAPENTIN 400 MG CAPSULE PO ×3 (08:13→16:59)
[2021-01-05] MEDS: PANTOPRAZOLE 40 MG TABLET PO (08:13)
[2021-01-05] MEDS: FONDAPARINUX SODIUM 2.5 MG/0.5 ML SYRINGE SUB-Q (08:13)
[2021-01-05] MEDS: HYDROcodone/acetaminophen (*CRX) 7.5-325 MG TABLET 1 TAB PO ×3 (08:13→20:43)
[2021-01-05] MEDS: PHENYTOIN SODIUM 100 MG CAP 300 MG PO (08:13)
[2021-01-05] MEDS: FAMOTIDINE 20 MG TABLET PO ×2 (08:13→20:43)
--- NOTE | 2021-01-05 10:28 | PC.NURSE ---
small bump palpated in patient's left upper arm. myself and Laura PA assessed together. not concerned as of now, will continue to monitor and update Laura. no new orders at this time.
--- NOTE | 2021-01-05 13:14 | PM.PNORT ---
Progress Note: A&P Assessment and Plan (1) Closed intertrochanteric fracture of left hip: Qualifiers: Encounter type: subsequent encounter Fracture alignment: displaced Fracture healing: with routine healing Qualified Code(s): S72.142D - Displaced intertrochanteric fracture of left femur, subsequent encounter for closed fracture with routine healing Code(s): S72.142A - Displaced intertrochanteric fracture of left femur, initial encounter for closed fracture Status: Acute Assessment and Plan: POD #3: Gamma Dimas Left Hip HgB stable today, 7.5. Will continue to monitor. Continue PT/OT. TTWB RLE. Walker. HIGH FALL RISK. Okay to remove perea catheter once able to transition to commode. Pain control. Ice lateral hip. Incentive spirometry. SCDs. Dispo: SNF when medically cleared (2) Hematoma: Code(s): T14.8XXA - Other injury of unspecified body region, initial encounter Status: Acute Assessment and Plan: Hematoma noted on the lateral aspect of the left upper arm/shoulder. No limitations with ROM noted. Complaints of pain. Plan for orders of Xray for further evaluaiton. Subjective Subjective Date/Time Seen: 01/05/21 13:14 Principal diagnosis: POD #3: L Gamma Dimas Insertion Interval history: POD #1: Left Gamma Dimas Insertion. It was new complaints of left arm pain today. She does have a bruise over the lateral aspect of the deltoid. No difficulty with range of motion. Otherwise, no complaints. Difficulty with PT and OT. Slow progress. Review of Systems Review of Systems: All systems reviewed & are unremarkable except as noted in HPI and below Exam Const: General: comfortable and no acute distress Resp: Effort & Inspection: normal respiratory effort Cardio: Rate: regular rate Rhythm: regular rhythm GI: Inspection: non-distended GI Palp: Yes Soft to palpation and No Tenderness to palpation present (GI) Urinary Catheter: Urinary Catheter: patent and draining and urine clear Skin: Other: Ecchymosis left arm Neuro: General: No gait normal Cognition (Neuro): normal cognition Speech: normal speech Extrem: Left lower extremity: hip/thigh Details: tenderness Location: of the hip Location: laterally and anteriorly and abnormal ROM (limited ROM due to recent surgical intervention ), knee Details: normal to inspection; no tenderness and no swelling, lower leg (Negative Carlos's Sign ) Details: normal to inspection, ankle (+ankle dorsiflexion/plantarflexion ) and foot (2+ pedal pulses. ) Details: normal capillary refill Other: Incision left thigh c/d/i. Surrounding tissue with mild ecchymosis. Psych: Mental Status: mental status grossly normal Objective Data Vital Signs Vital Signs: Vital Signs - 24 hr 01/04/21 14:00 01/04/21 14:22 01/04/21 17:55 Temperature 36.2 C L 36.9 C Pulse Rate 88 88 Respiratory Rate 18 18 Blood Pressure 102/36 L 110/44 L 100/46 L Pulse Oximetry 97 97 01/04/21 22:00 01/05/21 02:00 01/05/21 06:00 Temperature 36.9 C 37.3 C 37.3 C Pulse Rate 90 97 92 Respiratory Rate 18 18 18 Blood Pressure 106/50 L 105/45 L 100/40 L Pulse Oximetry 96 96 96 01/05/21 10:00 Temperature 36.6 C Pulse Rate 84 Respiratory Rate 16 Blood Pressure 110/58 L Pulse Oximetry 95 Intake/Output Intake/Output: Intake & Output 01/02/21 01/03/21 01/04/21 01/05/21 23:59 23:59 23:59 23:59 Intake Total 250 1080 1490 1510 Output Total 3895 975 2450 1000 Balance -3645 105 -960 510 Meds/Results Medications: Active Medications Generic Name Dose Route Start Last Admin Trade Name Freq PRN Reason Stop Dose Admin Acetaminophen 650 mg 01/02/21 16:08 Acetaminophen 325 Mg Tablet PO Q6H PRN Mild Pain (1-3) or Fever Hydrocodone Bitart/Acetaminophen 1 tab 01/02/21 16:08 01/05/21 12:51 Hydrocodone/Acetaminophen (*Crx) 7.5-325 Mg Tablet PO 1 tab Q3H PRN Administration Pain Rated 4-6 Diazepam 5 mg 01/02/21 16:08
--- NOTE | 2021-01-05 13:52 | P.PNIM_ITS ---
Progress Note: A&P Assessment and Plan (1) Frequent falls: Code(s): R29.6 - Repeated falls Status: Acute Assessment and Plan: She has been having several falls at home. Had a mechanical fall from the toilet just prior to presentation. She did hit her head but did not lose consciousness. Denied any precipitating symptoms. Reports her legs have been feeling weak * Fall precautions implemented * Head CT with no acute findings * Left knee x-ray with no acute findings. * Complained in past days of right-sided chest wall pain. CXR without concern. No compaints of pain of chest wall pain today. * B12, folic acid, TSH, vitamin D wnl * She will benefit from an outpatient DEXA scan given falls and fractures. She is on Prolia injections every 6 months. * Slow progress with PT/OT. Still unable to transfer. Continue perea catheter and plan for voiding trial once pt able to transfer (2) Closed intertrochanteric fracture of left hip: Qualifiers: Encounter type: subsequent encounter Fracture alignment: displaced Fracture healing: with routine healing Qualified Code(s): S72.142D - Displaced intertrochanteric fracture of left femur, subsequent encounter for closed fracture with routine healing Code(s): S72.142A - Displaced intertrochanteric fracture of left femur, initial encounter for closed fracture Status: Acute Assessment and Plan: Secondary to mechanical fall as described above. * Hip/pelvis x-ray showed acute nondisplaced left hip intertrochanteric fracture * Appreciate orthopedic surgery consultation * Surgical repair on 01/02/21 with left hip gamma shaw by Dr. Curry. * Supportive care. Analgesics available as needed. * Continue PT/OT * Care coordination following. Planning for SNF placement (3) Proximal humeral fracture: Qualifiers: Encounter type: initial encounter Fracture type: closed Fracture alignment: displaced Laterality: right Code(s): S42.209A - Unspecified fracture of upper end of unspecified humerus, initial encounter for closed fracture Status: Acute Assessment and Plan: Secondary to a fall which occurred about 2 weeks ago. * She was evaluated this facility * Right humerus x-ray showed nondisplaced right humeral neck fracture extending inferiorly/obliquely * Right arm sling in place. Continue pain control, sling wear and rest, and PT/OT when appropriate. * Appreciate orthopedic surgery evaluation. She will need to continue with ou tpatient follow-up (4) Asymptomatic bacteriuria: Code(s): R82.71 - Bacteriuria Status: Acute Assessment and Plan: Urinalysis grossly abnormal on presentation. She denies any urinary symptoms. She is afebrile, no leukocytosis Could be the reason for the frequent falls. * Urine culture with growth of >100k E.coli sensitive to Levaquin * Completed 4 days antibiotic therapy * Blood cultures negative (5) Seizure disorder: Code(s): G40.909 - Epilepsy, unspecified, not intractable, without status epilepticus Status: Acute Assessment and Plan: She reports she has not had a seizure in over 20 years. * Continue phenytoin (6) Hypothyroidism: Qualifiers: Hypothyroidism type: unspecified Qualified Code(s): E03.9 - Hypothyroidism, unspecified Code(s): E03.9 - Hypothyroidism, unspecified Status: Chronic Assessment and Plan: TSH is within normal limits * Continue levothyroxine (7) Hematoma: Code(s): T14.8XXA - Other
--- NOTE | 2021-01-05 13:52 | PM.IMPN ---
Progress Note: A&P Assessment and Plan (1) Frequent falls: Code(s): R29.6 - Repeated falls Status: Acute Assessment and Plan: She has been having several falls at home. Had a mechanical fall from the toilet just prior to presentation. She did hit her head but did not lose consciousness. Denied any precipitating symptoms. Reports her legs have been feeling weak Fall precautions implemented Head CT with no acute findings Left knee x-ray with no acute findings. Complained in past days of right-sided chest wall pain. CXR without concern. No compaints of pain of chest wall pain today. B12, folic acid, TSH, vitamin D wnl She will benefit from an outpatient DEXA scan given falls and fractures. She is on Prolia injections every 6 months. Slow progress with PT/OT. Still unable to transfer. Continue perea catheter and plan for voiding trial once pt able to transfer (2) Closed intertrochanteric fracture of left hip: Qualifiers: Encounter type: subsequent encounter Fracture alignment: displaced Fracture healing: with routine healing Qualified Code(s): S72.142D - Displaced intertrochanteric fracture of left femur, subsequent encounter for closed fracture with routine healing Code(s): S72.142A - Displaced intertrochanteric fracture of left femur, initial encounter for closed fracture Status: Acute Assessment and Plan: Secondary to mechanical fall as described above. Hip/pelvis x-ray showed acute nondisplaced left hip intertrochanteric fracture Appreciate orthopedic surgery consultation Surgical repair on 01/02/21 with left hip gamma shaw by Dr. Curry. Supportive care. Analgesics available as needed. Continue PT/OT Care coordination following. Planning for SNF placement (3) Proximal humeral fracture: Qualifiers: Encounter type: initial encounter Fracture type: closed Fracture alignment: displaced Laterality: right Code(s): S42.209A - Unspecified fracture of upper end of unspecified humerus, initial encounter for closed fracture Status: Acute Assessment and Plan: Secondary to a fall which occurred about 2 weeks ago. She was evaluated this facility Right humerus x-ray showed nondisplaced right humeral neck fracture extending inferiorly/obliquely Right arm sling in place. Continue pain control, sling wear and rest, and PT/OT when appropriate. Appreciate orthopedic surgery evaluation. She will need to continue with outpatient follow-up (4) Asymptomatic bacteriuria: Code(s): R82.71 - Bacteriuria Status: Acute Assessment and Plan: Urinalysis grossly abnormal on presentation. She denies any urinary symptoms. She is afebrile, no leukocytosis Could be the reason for the frequent falls. Urine culture with growth of >100k E.coli sensitive to Levaquin Completed 4 days antibiotic therapy Blood cultures negative (5) Seizure disorder: Code(s): G40.909 - Epilepsy, unspecified, not intractable, without status epilepticus Status: Acute Assessment and Plan: She reports she has not had a seizure in over 20 years. Continue phenytoin (6) Hypothyroidism: Qualifiers: Hypothyroidism type: unspecified Qualified Code(s): E03.9 - Hypothyroidism, unspecified Code(s): E03.9 - Hypothyroidism, unspecified Status: Chronic Assessment and Plan: TSH is within normal limits Continue levothyroxine (7) Hematoma: Code(s): T14.8XXA - Other injury of unspecified body region, initial encounter Status: Acute Assessment and Plan: Complains of left lateral upper arm pain Seems consistent with small Proceed with x-ray per Orthopedic surgery Supportive care (8) Anemia: Code(s): D64.9 - Anemia, unspecified Status: Acute Assessment and Plan: Hemoglobin slight decline since admission, likely related to surgical blood loss. No
[2021-01-06] VITALS (7 sets, daily range): BP systolic 100–112; BP diastolic 38–69; PULSE 82–95; RESP 14–18; TEMP 36.5–37; O2SAT 93–100
[2021-01-06] MEDS: HYDROcodone/acetaminophen (*CRX) 7.5-325 MG TABLET 1 TAB PO ×3 (05:04→20:54)
[2021-01-06 06:21] LABS: Hematocrit 24.9 % (37.0-47.0); Hemoglobin 7.8 g/dL (12.0-15.0); Immature Platelet Fraction Pct 6.6 % (0.9-11.2); Mean Corpuscular HGB Conc 31.3 g/dl (32-36); Mean Corpuscular Hemoglobin 34.5 pg (26-34); Mean Corpuscular Volume 110.2 fl (80-100); Mean Platelet Volume 10.6 fl (7.4-10.4); Platelet Count Result 149 k/mm3 (150-375); Red Blood Count 2.26 M/mm3 (4.2-5.4); Red Cell Distribution Width 14.2 % (11.5-14.5); White Blood Count 4.3 K/mm3 (4.5-10.0)
[2021-01-06] MEDS: LEVOTHYROXINE SODIUM 75 MCG TABLET PO (06:38)
--- NOTE | 2021-01-06 08:20 | PCPTNOTE ---
Attempted to see patient for PT at this time, however patient refused due to right arm pain at 9/10 and patient finishing up breakfast. RN aware of right arm pain.
[2021-01-06] MEDS: PANTOPRAZOLE 40 MG TABLET PO (08:49)
[2021-01-06] MEDS: FAMOTIDINE 20 MG TABLET PO ×2 (08:49→20:54)
[2021-01-06] MEDS: DOCUSATE SODIUM 100 MG CAPSULE PO ×2 (08:49→16:05)
[2021-01-06] MEDS: PHENYTOIN SODIUM 100 MG CAP 300 MG PO (08:49)
[2021-01-06] MEDS: CHOLECALCIFEROL 1,000 UNITS TABLET 5000 UNITS PO (08:49)
[2021-01-06] MEDS: GABAPENTIN 400 MG CAPSULE PO ×3 (08:50→16:05)
[2021-01-06] MEDS: FONDAPARINUX SODIUM 2.5 MG/0.5 ML SYRINGE SUB-Q (08:51)
[2021-01-06] MEDS: SIMVASTATIN 20 MG TABLET 40 MG PO (08:51)
--- NOTE | 2021-01-06 10:02 | PM.PNORT ---
Progress Note: A&P Assessment and Plan (1) Closed intertrochanteric fracture of left hip: Qualifiers: Encounter type: subsequent encounter Fracture alignment: displaced Fracture healing: with routine healing Qualified Code(s): S72.142D - Displaced intertrochanteric fracture of left femur, subsequent encounter for closed fracture with routine healing Code(s): S72.142A - Displaced intertrochanteric fracture of left femur, initial encounter for closed fracture Status: Acute Assessment and Plan: POD #4: Gamma Dimas Left Hip HgB stable today, 7.8. Will continue to monitor. Continue PT/OT. TTWB RLE. Walker. HIGH FALL RISK. Encouraged compliance with PT/OT. OOB to chair today. Okay to remove perea catheter once able to transition to commode. Pain control. Ice lateral hip. Change dressing daily. Incentive spirometry. SCDs. DVT prophylaxis with Arixtra. Dispo: SNF when medically cleared and improvement with PT/OT. (2) Hematoma: Code(s): T14.8XXA - Other injury of unspecified body region, initial encounter Status: Acute Assessment and Plan: Hematoma noted on the lateral aspect of left upper arm/shoulder yesterday. Radiographs obtained which reveal no evidence of fracture, dislocation or acute abnormalities. Per the MAR, it appears the patient did receive Arixtra in the arm yesterday morning which could correlate to symptoms. Recommend warm compresses at this time. Continue to monitor. Reinforced injections into abdomen in the future. Subjective Subjective Date/Time Seen: 01/06/21 10:02 Post Op day: 4 Interval history: POD #4: L Gamma Dimas Insertion Patient continues to have slow progress with PT and OT. She continues to complain of pain. She has pain of the left arm as well with mild swelling. PT and OT at the bedside during assessment. Encouraged patient to get out of bed to the chair. Patient is agreeable. Review of Systems Review of Systems: All systems reviewed & are unremarkable except as noted in HPI and below Exam Const: General: comfortable and no acute distress Resp: Effort & Inspection: normal respiratory effort Cardio: Rate: regular rate Rhythm: regular rhythm GI: Inspection: non-distended GI Palp: Yes Soft to palpation and No Tenderness to palpation present (GI) Urinary Catheter: Urinary Catheter: patent and draining and urine clear Skin: Other: Ecchymosis left arm Neuro: General: No gait normal Cognition (Neuro): normal cognition Speech: normal speech Extrem: Left lower extremity: hip/thigh Details: tenderness Location: of the hip Location: laterally and anteriorly and abnormal ROM (limited ROM due to recent surgical intervention ), knee Details: normal to inspection; no tenderness and no swelling, lower leg (Negative Carlos's Sign ) Details: normal to inspection, ankle (+ankle dorsiflexion/plantarflexion ) and foot (2+ pedal pulses. ) Details: normal capillary refill Other: Incision left thigh c/d/i. Surrounding tissue with mild ecchymosis. Psych: Mental Status: mental status grossly normal Objective Data Vital Signs Vital Signs: Vital Signs - 24 hr 01/05/21 14:30 01/05/21 18:25 01/05/21 20:00 Temperature 36.2 C L 36.6 C Pulse Rate 77 82 82 Respiratory Rate 18 18 18 Blood Pressure 110/58 L 110/56 L Pulse Oximetry 95 96 96 01/05/21 22:00 01/06/21 01:32 01/06/21 06:00 Temperature 36.6 C 36.6 C 37.0 C Pulse Rate 77 82 82 Respiratory Rate 16 14 16 Blood Pressure 98/48 L 100/45 L 109/38 L Pulse Oximetry 96 100 95 Intake/Output Intake/Output: Intake & Output 01/03/21 01/04/21 01/05/21 01/06/21 23:59 23:59 23:59 23:59 Intake Total 1080 1490 2220 360 Output Total 883 4980 1750 1999 Balance 105 -720 204 -5244 Meds/Results Medications: Active Medications Generic Name Dose Route Start Last Admin Trade Name Freq PRN Reason Stop Dose Admin Acetaminophen 650 mg 01/02/21 16:08 Acetaminophen 325 Mg Tablet PO
--- NOTE | 2021-01-06 11:56 | PC.NURSE ---
On 01/06/21, the student, Esmer Frost, provided care and completed [facility] documentation on this patient. I have reviewed the student's documentation and agree with the findings.
--- NOTE | 2021-01-06 13:48 | PCPTNOTE ---
Attempted to see patient for PT afternoon session, however patient refused. Encouraged patient to participate, patient continued to refuse.
--- NOTE | 2021-01-06 14:58 | PCPTNOTE ---
PT care plan was reduced to 1x/day due to poor tolerance to activity and poor participation in physical therapy. If she started to participate more we may be able to increase frequency again.
--- NOTE | 2021-01-06 15:45 | P.PNIM_ITS ---
Progress Note: A&P Assessment and Plan (1) Frequent falls: Code(s): R29.6 - Repeated falls Status: Acute Assessment and Plan: She has been having several falls at home. Had a mechanical fall from the toilet just prior to presentation. She did hit her head but did not lose consciousness. Denied any precipitating symptoms. * Fall precautions implemented * Head CT with no acute findings * Left knee x-ray with no acute findings. * Initially complained of right-sided chest wall pain. CXR without evidence of rib fracture. No compaints of chest wall pain. * B12, folic acid, TSH, vitamin D wnl * She will benefit from an outpatient DEXA scan given falls and fractures. She is on Prolia injections every 6 months. * Slow progress with PT/OT. Still unable to transfer. Continue perea catheter and plan for voiding trial once pt able to transfer (2) Closed intertrochanteric fracture of left hip: Qualifiers: Encounter type: subsequent encounter Fracture alignment: displaced Fracture healing: with routine healing Qualified Code(s): S72.142D - Displaced intertrochanteric fracture of left femur, subsequent encounter for closed fracture with routine healing Code(s): S72.142A - Displaced intertrochanteric fracture of left femur, initial encounter for closed fracture Status: Acute Assessment and Plan: Secondary to mechanical fall as described above. * Hip/pelvis x-ray showed acute nondisplaced left hip intertrochanteric fracture * Appreciate orthopedic surgery consultation * Surgical repair on 01/02/21 with left hip gamma shaw by Dr. Curry. * Supportive care. Analgesics available as needed. * Continue PT/OT * Care coordination following. Planning for SNF placement (3) Proximal humeral fracture: Qualifiers: Encounter type: initial encounter Fracture type: closed Fracture alignment: displaced Laterality: right Code(s): S42.209A - Unspecified fracture of upper end of unspecified humerus, initial encounter for closed fracture Status: Acute Assessment and Plan: Secondary to a fall which occurred about 2 weeks ago. * She was evaluated this facility * Right humerus x-ray showed nondisplaced right humeral neck fracture extending inferiorly/obliquely * Right arm sling in place. * Appreciate orthopedic surgery evaluation. She will need to continue with outpatient follow-up (4) Asymptomatic bacteriuria: Code(s): R82.71 - Bacteriuria Status: Acute Assessment and Plan: Urinalysis grossly abnormal on presentation. She denies any urinary symptoms. She is afebrile, no leukocytosis Could be the reason for the frequent falls. * Urine culture with growth of >100k E.coli sensitive to Levaquin * Completed 4 days antibiotic therapy * Blood cultures negative (5) Seizure disorder: Code(s): G40.909 - Epilepsy, unspecified, not intractable, without status epilepticus Status: Acute Assessment and Plan: She reports she has not had a seizure in over 20 years. * Continue phenytoin (6) Hypothyroidism: Qualifiers: Hypothyroidism type: unspecified Qualified Code(s): E03.9 - Hypothyroidism, unspecified Code(s): E03.9 - Hypothyroidism, unspecified Status: Chronic Assessment and Plan: TSH is within normal limits * Continue levothyroxine (7) Hematoma: Code(s): T14.8XXA - Other injury of unspecified body region, initial encounter Status: Acute Assessment and Plan
--- NOTE | 2021-01-06 15:45 | PM.IMPN ---
Progress Note: A&P Assessment and Plan (1) Frequent falls: Code(s): R29.6 - Repeated falls Status: Acute Assessment and Plan: She has been having several falls at home. Had a mechanical fall from the toilet just prior to presentation. She did hit her head but did not lose consciousness. Denied any precipitating symptoms. Fall precautions implemented Head CT with no acute findings Left knee x-ray with no acute findings. Initially complained of right-sided chest wall pain. CXR without evidence of rib fracture. No compaints of chest wall pain. B12, folic acid, TSH, vitamin D wnl She will benefit from an outpatient DEXA scan given falls and fractures. She is on Prolia injections every 6 months. Slow progress with PT/OT. Still unable to transfer. Continue perea catheter and plan for voiding trial once pt able to transfer (2) Closed intertrochanteric fracture of left hip: Qualifiers: Encounter type: subsequent encounter Fracture alignment: displaced Fracture healing: with routine healing Qualified Code(s): S72.142D - Displaced intertrochanteric fracture of left femur, subsequent encounter for closed fracture with routine healing Code(s): S72.142A - Displaced intertrochanteric fracture of left femur, initial encounter for closed fracture Status: Acute Assessment and Plan: Secondary to mechanical fall as described above. Hip/pelvis x-ray showed acute nondisplaced left hip intertrochanteric fracture Appreciate orthopedic surgery consultation Surgical repair on 01/02/21 with left hip gamma shaw by Dr. Curry. Supportive care. Analgesics available as needed. Continue PT/OT Care coordination following. Planning for SNF placement (3) Proximal humeral fracture: Qualifiers: Encounter type: initial encounter Fracture type: closed Fracture alignment: displaced Laterality: right Code(s): S42.209A - Unspecified fracture of upper end of unspecified humerus, initial encounter for closed fracture Status: Acute Assessment and Plan: Secondary to a fall which occurred about 2 weeks ago. She was evaluated this facility Right humerus x-ray showed nondisplaced right humeral neck fracture extending inferiorly/obliquely Right arm sling in place. Appreciate orthopedic surgery evaluation. She will need to continue with outpatient follow-up (4) Asymptomatic bacteriuria: Code(s): R82.71 - Bacteriuria Status: Acute Assessment and Plan: Urinalysis grossly abnormal on presentation. She denies any urinary symptoms. She is afebrile, no leukocytosis Could be the reason for the frequent falls. Urine culture with growth of >100k E.coli sensitive to Levaquin Completed 4 days antibiotic therapy Blood cultures negative (5) Seizure disorder: Code(s): G40.909 - Epilepsy, unspecified, not intractable, without status epilepticus Status: Acute Assessment and Plan: She reports she has not had a seizure in over 20 years. Continue phenytoin (6) Hypothyroidism: Qualifiers: Hypothyroidism type: unspecified Qualified Code(s): E03.9 - Hypothyroidism, unspecified Code(s): E03.9 - Hypothyroidism, unspecified Status: Chronic Assessment and Plan: TSH is within normal limits Continue levothyroxine (7) Hematoma: Code(s): T14.8XXA - Other injury of unspecified body region, initial encounter Status: Acute Assessment and Plan: Complained of left lateral upper arm pain Seems consistent with small hematoma. Likely secondary to arixtra injection in left arm. Supportive care. Continue warm compresses. (8) Anemia: Code(s): D64.9 - Anemia, unspecified Status: Acute Assessment and Plan: Hemoglobin slight decline since admission, likely related to surgical blood loss. No signs of ongoing bleeding. H&H remaining stable Contin
--- NOTE | 2021-01-06 18:44 | PC.NURSE ---
Patient stated that she has not had a bowel movement since 12/29. I offered milk of magnesia multiple times to patient. Patient refused and stated she does not want to take any laxatives until she is able to get up to a commode easier. I explained to the patient that we could use a bedpan and that the pain medication that she is on can cause constipation. The patient still refuses to take milk of magnesia and stated she will continue the Colace until I move easier tomorrow .
[2021-01-07 01:09] VITALS: BP 101/49; PULSE 78; RESP 16; TEMP 36.7; O2SAT 96
[2021-01-07 05:38] LABS: Hematocrit 24.6 % (37.0-47.0); Mean Corpuscular HGB Conc 32.5 g/dl (32-36); Mean Corpuscular Hemoglobin 34.9 pg (26-34); Mean Corpuscular Volume 107.4 fl (80-100); Mean Platelet Volume 9.8 fl (7.4-10.4); Platelet Count Result 161 k/mm3 (150-375); Red Blood Count 2.29 M/mm3 (4.2-5.4); Red Cell Distribution Width 14.2 % (11.5-14.5); White Blood Count 4.6 K/mm3 (4.5-10.0)
[2021-01-07] MEDS: LEVOTHYROXINE SODIUM 75 MCG TABLET PO (05:49)
[2021-01-07 05:53] LABS: Anion Gap 4 mmol/L (8-16); Blood Urea Nitrogen 15 mg/dL (7-17); Calcium 8.2 mg/dL (8.4-10.2); Carbon Dioxide 31 mmol/L (22-30); Chloride 105 mmol/L (98-107); Estimated CRCL calculation 58 ml/min; Estimated Glomerular Filt Rate > 60; Glucose 126 mg/dL (65-110); Potassium 4.1 mmol/L (3.4-5.0); Sodium 140 mmol/L (137-145)
[2021-01-07 06:00] VITALS: BP 108/40; PULSE 81; RESP 16; TEMP 36.4; O2SAT 97
[2021-01-07] MEDS: HYDROcodone/acetaminophen (*CRX) 7.5-325 MG TABLET 1 TAB PO ×2 (06:09→09:26)
[2021-01-07] MEDS: FONDAPARINUX SODIUM 2.5 MG/0.5 ML SYRINGE SUB-Q (09:25)
[2021-01-07] MEDS: PANTOPRAZOLE 40 MG TABLET PO (09:25)
[2021-01-07] MEDS: FAMOTIDINE 20 MG TABLET PO ×2 (09:25→20:26)
[2021-01-07] MEDS: GABAPENTIN 400 MG CAPSULE PO ×3 (09:25→17:56)
[2021-01-07] MEDS: CHOLECALCIFEROL 1,000 UNITS TABLET 5000 UNITS PO (09:25)
[2021-01-07] MEDS: PHENYTOIN SODIUM 100 MG CAP 300 MG PO (09:25)
[2021-01-07] MEDS: DOCUSATE SODIUM 100 MG CAPSULE PO ×2 (09:25→17:56)
[2021-01-07] MEDS: SIMVASTATIN 20 MG TABLET 40 MG PO (09:25)
[2021-01-07] MEDS: polyethylene glycoL 3350 17 GM POWD.PACK PO (09:26)
[2021-01-07 09:56] VITALS: BP 110/44; PULSE 87; RESP 20; TEMP 36.2; O2SAT 98
[2021-01-07 14:31] LABS: EDCOVIDSCREEN Negative (Negative)
[2021-01-07 15:10] VITALS: BP 115/58; PULSE 84; RESP 12; TEMP 36.3; O2SAT 96
--- NOTE | 2021-01-07 15:10 | P.DS_ITS ---
DS: Admitting Diagnosis Discharge Date 01/07/2021 Admitting Diagnosis Left hip fracture DS: Discharge Diagnosis Discharge Diagnosis (1) Frequent falls: Code(s): R29.6 - Repeated falls Status: Acute Assessment and Plan: Had a mechanical fall from the toilet just prior to presentation. She did hit her head but did not lose consciousness. Denied any precipitating symptoms. Reports having several falls at home. * Fall precautions implemented * Head CT with no acute findings * Left knee x-ray with no acute findings. * Initially complained of right-sided chest wall pain which resolved. CXR without evidence of rib fracture * B12, folic acid, TSH, vitamin D wnl * She will benefit from an outpatient DEXA scan given falls and fractures. She is on Prolia injections every 6 months. * Slow progress with PT/OT during hospitalization. Continue therapy at SNF (2) Closed intertrochanteric fracture of left hip: Qualifiers: Encounter type: subsequent encounter Fracture alignment: displaced Fracture healing: with routine healing Qualified Code(s): S72.142D - Displaced intertrochanteric fracture of left femur, subsequent encounter for closed fracture with routine healing Code(s): S72.142A - Displaced intertrochanteric fracture of left femur, initial encounter for closed fracture Status: Acute Assessment and Plan: Secondary to mechanical fall as described above. * Hip/pelvis x-ray showed acute nondisplaced left hip intertrochanteric fracture * Seen in consultation by Orthopedic surgery * Surgical repair on 01/02/21 with left hip gamma shaw by Dr. Curry. * Supportive care and analgesics provided * Continue PT/OT at SNF * Continue Arixtra for DVT prophylaxis per Orthopedic surgery * Outpatient follow-up with Ortho 02/16/2021 (3) Proximal humeral fracture: Qualifiers: Encounter type: initial encounter Fracture type: closed Fracture alignment: displaced Laterality: right Code(s): S42.209A - Unspecified fracture of upper end of unspecified humerus, initial encounter for closed fracture Status: Acute Assessment and Plan: Secondary to a fall which occurred about 2 weeks ago. * She was previously evaluated this facility on 12/24 * Right humerus x-ray showed nondisplaced right humeral neck fracture extending inferiorly/obliquely * Right arm sling in place. Continue * Appreciate orthopedic surgery evaluation. She will need to continue with outpatient follow-up (4) UTI (urinary tract infection): Code(s): N39.0 - Urinary tract infection, site not specified Status: Acute Assessment and Plan: Urinalysis grossly abnormal on presentation. She denied any urinary symptoms. She remained afebrile, no leukocytosis * Urine culture with growth of >100k E.coli sensitive to Levaquin * Completed 4 days antibiotic therapy * Blood cultures negative (5) Seizure disorder: Code(s): G40.909 - Epilepsy, unspecified, not intractable, without status epilepticus Status: Acute Assessment and Plan: She reports she has not had a seizure in over 20 years. * Continue phenytoin (6) Hypothyroidism: Qualifiers: Hypothyroidism type: unspecified Qualified Code(s): E03.9 - Hypothyroidism, unspecified Code(s): E03.9 - Hypothyroidism, unspecified Status: Chronic Assessment and Plan: TSH is within normal limits * Continue levothyroxine (7) Hematoma: Code(s): T14.8XXA - Ot
--- NOTE | 2021-01-07 15:10 | PM.DS ---
DS: Admitting Diagnosis Discharge Date 01/07/2021 Admitting Diagnosis Left hip fracture DS: Discharge Diagnosis Discharge Diagnosis (1) Frequent falls: Code(s): R29.6 - Repeated falls Status: Acute Assessment and Plan: Had a mechanical fall from the toilet just prior to presentation. She did hit her head but did not lose consciousness. Denied any precipitating symptoms. Reports having several falls at home. Fall precautions implemented Head CT with no acute findings Left knee x-ray with no acute findings. Initially complained of right-sided chest wall pain which resolved. CXR without evidence of rib fracture B12, folic acid, TSH, vitamin D wnl She will benefit from an outpatient DEXA scan given falls and fractures. She is on Prolia injections every 6 months. Slow progress with PT/OT during hospitalization. Continue therapy at SNF (2) Closed intertrochanteric fracture of left hip: Qualifiers: Encounter type: subsequent encounter Fracture alignment: displaced Fracture healing: with routine healing Qualified Code(s): S72.142D - Displaced intertrochanteric fracture of left femur, subsequent encounter for closed fracture with routine healing Code(s): S72.142A - Displaced intertrochanteric fracture of left femur, initial encounter for closed fracture Status: Acute Assessment and Plan: Secondary to mechanical fall as described above. Hip/pelvis x-ray showed acute nondisplaced left hip intertrochanteric fracture Seen in consultation by Orthopedic surgery Surgical repair on 01/02/21 with left hip gamma shaw by Dr. Curry. Supportive care and analgesics provided Continue PT/OT at SNF Continue Arixtra for DVT prophylaxis per Orthopedic surgery Outpatient follow-up with Ortho 02/16/2021 (3) Proximal humeral fracture: Qualifiers: Encounter type: initial encounter Fracture type: closed Fracture alignment: displaced Laterality: right Code(s): S42.209A - Unspecified fracture of upper end of unspecified humerus, initial encounter for closed fracture Status: Acute Assessment and Plan: Secondary to a fall which occurred about 2 weeks ago. She was previously evaluated this facility on 12/24 Right humerus x-ray showed nondisplaced right humeral neck fracture extending inferiorly/obliquely Right arm sling in place. Continue Appreciate orthopedic surgery evaluation. She will need to continue with outpatient follow-up (4) UTI (urinary tract infection): Code(s): N39.0 - Urinary tract infection, site not specified Status: Acute Assessment and Plan: Urinalysis grossly abnormal on presentation. She denied any urinary symptoms. She remained afebrile, no leukocytosis Urine culture with growth of >100k E.coli sensitive to Levaquin Completed 4 days antibiotic therapy Blood cultures negative (5) Seizure disorder: Code(s): G40.909 - Epilepsy, unspecified, not intractable, without status epilepticus Status: Acute Assessment and Plan: She reports she has not had a seizure in over 20 years. Continue phenytoin (6) Hypothyroidism: Qualifiers: Hypothyroidism type: unspecified Qualified Code(s): E03.9 - Hypothyroidism, unspecified Code(s): E03.9 - Hypothyroidism, unspecified Status: Chronic Assessment and Plan: TSH is within normal limits Continue levothyroxine (7) Hematoma: Code(s): T14.8XXA - Other injury of unspecified body region, initial encounter Status: Acute Assessment and Plan: Complained of left lateral upper arm pain and found to have small hematoma on left deltoid region Likely secondary to arixtra injection in left arm. Avoid further IM injections in the arm Supportive care. Elevate the extremity. Continue warm compresses. (8) Anemia: Code(s): D64.9 - Anemia, unspecified Status: Acute
[2021-01-07] MEDS: diazePAM (*CRX) 5 MG TABLET PO (17:56)
[2021-01-07 20:00] VITALS: PULSE 88; RESP 16; O2SAT 95
[2021-01-07 21:13] VITALS: BP 101/50; PULSE 88; RESP 16; TEMP 36.6; O2SAT 95
== END 2021-01-07 22:55 | DRG 481 ==
LOC: ANHED 08:39 → ANH2MED 10:39
PROVIDERS: Nurse Practitioner; Orthopaedic Surgery; Admitting Provider Internal Medicine; Emergency Provider Emergency Medicine; PCP Internal Medicine; Visit Provider Physician Assistant
PROC: 0QS734Z Reposition Left Upper Femur with Internal Fixation Device, Percutaneous Approach (ICD-10-PCS; CPT 27245; principal; 2021-01-02 13:00)
DX: S72.145A Nondisplaced intertrochanteric fracture of left femur, initial encounter for closed fracture (principal); N39.0 Urinary tract infection, site not specified; D62 Acute posthemorrhagic anemia; B96.20 Unspecified Escherichia coli [E. coli] as the cause of diseases classified elsewhere; S42.294D Other nondisplaced fracture of upper end of right humerus, subsequent encounter for fracture with routine healing; T80.89XA Other complications following infusion, transfusion and therapeutic injection, initial encounter; M79.81 Nontraumatic hematoma of soft tissue; Z20.822 Contact with and (suspected) exposure to COVID-19; S00.83XA Contusion of other part of head, initial encounter; W18.12XA Fall from or off toilet with subsequent striking against object, initial encounter; R29.6 Repeated falls; M81.0 Age-related osteoporosis without current pathological fracture; K21.9 Gastro-esophageal reflux disease without esophagitis; E78.5 Hyperlipidemia, unspecified; E03.9 Hypothyroidism, unspecified; N32.81 Overactive bladder; G60.8 Other hereditary and idiopathic neuropathies; G40.909 Epilepsy, unspecified, not intractable, without status epilepticus; E55.9 Vitamin D deficiency, unspecified; W19.XXXD Unspecified fall, subsequent encounter; Z87.891 Personal history of nicotine dependence
CPT/HCPCS: 36415; 70450; 71045; 73030; 73502; 73564; 80048; 80053; 81001; 82306; 82607; 82746; 83735; 84439; 84443; 84480; 85025; 85027; 85055; 85610; 85730; 86850; 86900; 86901; 87040; 87077; 87086; 87088; 87186; 87426; 93005; 96361; 96365; 96366; 96367; 97110; 97162; 97165; 97530; 97535; 99285; A4565; A9270; C1713; C9803; G0378; J0690; J1652; J1956; J2270; J3010; J7120

== ENCOUNTER 2021-03-11 15:34 | Outpatient (CLI) | payer MEDICARE, SELFPAY ==
--- NOTE | ~2021-03-11 | CT_ITS ---
EXAMINATION: CT lumbar spine [facility] EXAM DATE: 03/11/2021 16:11 INDICATION: Fall, low back pain. L1 compression fracture. TECHNIQUE: Spiral CT lumbar spine was performed without contrast. Axial, coronal and sagittal images of the lumbar spine were reviewed. The dose-length product (DLP) for this examination was 1278.23 mGy -cm. The exposure was tailored according to patient size (auto mA exposure control), and iterative r econstruction (ASIR) was used as additional dose reduction technique. Comparison is made to prior exa mination from 10/14/2020. FINDINGS: There is a sacralized L5 segment. Mild L1 compression fracture appears unchanged compared t o prior study. There is moderate to severe loss of the T11-T12 disc height, moderate loss at T12-L1. Moderate to severe disc disease at L3-4 and L4-5. The vertebral bodies are aligned in the AP dimensio n. No acute fracture line identified. Transverse processes, sacrum appear intact. Moderate to severe L4-5 facet arthropathy, moderate at the other lumbar levels. Moderate bilateral neural foraminal and central canal stenosis L3-4 and L4-5. Paraspinal soft tissue is unremarkable. There is no significant interval change. IMPRESSION: 1. Chronic L1 compression fracture. 2. Moderate to severe lumbar spondylosis unchanged. Reviewed, dictated and finalized at location A. [employer]
== END 2021-03-11 15:35 | disposition home or self-care (01) ==
LOC: ANHIMG 15:41
PROVIDERS: PCP Internal Medicine; Visit Provider Internal Medicine
DX: S32.019A Unspecified fracture of first lumbar vertebra, initial encounter for closed fracture (principal); M47.816 Spondylosis without myelopathy or radiculopathy, lumbar region
CPT/HCPCS: 72131

== ENCOUNTER 2021-09-10 15:55 | Emergency (ER) | payer MEDICARE, SELFPAY ==
[2021-09-10] VITALS (20 sets, daily range): BP systolic 95–143; BP diastolic 29–68; PULSE 59–87; RESP 10–29; TEMP 36.3; O2SAT 91–100
--- NOTE | ~2021-09-10 | XR_ITS ---
XR chest 2V DATE: 09/10/2021 19:15 INDICATION: Hypotension TECHNIQUE: AP and lateral views COMPARISON: 01/01/2021 portable AP chest FINDINGS: Mild cardiomegaly with left ventricular prominence.. Aortic arch calcification. No hilar or mediastinal enlargement. There is mild patchy infiltrate in the left lower lobe, predominantly basilar. No pulmonary infiltrate or consolidation, pleural effusion or pulmonary vascular congestion or pneumo thorax is noted otherwise. Diffuse osteopenia. Mild dextroscoliosis and degenerative change of the thoracic spine. IMPRESSION: Left lower lobe infiltrate Reviewed, dictated and finalized at location A. IMPRESSION: Left lower lobe infiltrate
--- NOTE | 2021-09-10 16:25 | ECG_ITS ---
Measurements Intervals Lyles Rate: 64 P: -59 VT: 155 QRS: 64 QRSD: 84 T: 24 QT: 393 QTc: 407 Interpretive Statements SINUS RHYTHM COMPARED TO ECG 12/31/2020 09:44:43 NO SIGNIFICANT CHANGES Electronically Signed On 09-10-2021 20:41:05 CDT by Ninoska Burnette M.D.
[2021-09-10 16:44] LABS: Basophils Percent Auto 0.5 % (0.2-1.2); Eosinophils Absolute Auto 0.1 K/mm3 (0-0.3); Eosinophils Percent Auto 1.9 % (0-4.4); Hemoglobin 14.3 g/dL (12.0-15.0); Immature Granulocyte Absolute 0.01 K/mm3 (0.00-0.031); Immature Granulocyte Percent A 0.2 % (0-0.5); Immature Platelet Fraction Pct 6.4 % (0.9-11.2); Lymphocytes Absolute Auto 1.18 K/mm3 (0.9-3.2); Lymphocytes Percent Auto 28.5 % (18.3-44.2); Mean Corpuscular HGB Conc 32.5 g/dl (32-36); Mean Corpuscular Hemoglobin 33.2 pg (26-34); Mean Corpuscular Volume 102.1 fl (80-100); Mean Platelet Volume 10.4 fl (7.4-10.4); Monocytes Absolute Auto 0.4 K/mm3 (0.1-0.6); Monocytes Percent Auto 9.2 % (2.6-8.5); Neutrophils Absolute Auto 2.5 K/mm3 (1.3-6.7); Neutrophils Percent Auto 59.7 % (45.5-73.1); Platelet Count Result 126 k/mm3 (150-375); Red Blood Count 4.31 M/mm3 (4.2-5.4); White Blood Count 4.1 K/mm3 (4.5-10.0)
[2021-09-10 17:06] LABS: Alanine Aminotransferase 18 U/L (6-35); Alkaline Phosphatase 87 U/L (38-126); Anion Gap 4 mmol/L (8-16); Aspartate Amino Transferase 35 U/L (14-36); Blood Urea Nitrogen 16 mg/dL (7-17); Calcium 8.2 mg/dL (8.4-10.2); Carbon Dioxide 33 mmol/L (22-30); Chloride 98 mmol/L (98-107); Estimated CRCL calculation 59 ml/min; Estimated Glomerular Filt Rate > 60; Glucose 95 mg/dL (65-110); Potassium 4.7 mmol/L (3.4-5.0); Sodium 135 mmol/L (137-145)
[2021-09-10 17:18] LABS: Bilirubin,Total 0.4 mg/dL (0.2-1.3)
[2021-09-10 17:32] LABS: Albumin Level 4.2 g/dL (3.5-5.1)
[2021-09-10] MEDS: SODIUM CHLORIDE 0.9% IV 500 ML 999 ML IV CONT (19:20)
--- NOTE | 2021-09-10 19:56 | ED.WEAKNESS ---
HPI - Weakness General Chief complaint: Weakness Stated complaint: abd VS at PT Time Seen by Provider: 09/10/21 18:55 Source: patient History of Present Illness HPI Narrative: Patient presents with feeling lightheaded. Patient had 2 episodes today for subset was at home when she was doing some exercise she developed a warmth in her head put a cold compress on it and symptoms lasted 1 to 2 minutes then resolved. She had another episode while she was at physical therapy doing exercises when she had an episode of feeling warm again they got a cold compress episode lasted 1 to 2 minutes and then resolved. Patient has no complaints at this time. Sure she been feeling well these episodes denies any fevers, cough, congestion denies abdominal pain nausea vomiting or chest pain. She denies passing out she denies any urinary symptoms. Versus been eating and drinking normally Related Data Home Medications Medication Instructions Recorded Confirmed lansoprazole 15 mg delayed 15 mg PO DAILY 08/21/19 08/05/21 release,disintegrating tablet calcium carbonate 600 mg calcium 600 mg PO DAILY 01/23/21 08/05/21 (1,500 mg) tablet (Calcium) Allergies Allergy/AdvReac Type Severity Reaction Status Date / Time Penicillins Allergy Unknown Hives Verified 09/10/21 18:39 Review of Systems Review of Systems: CONSTITUTIONAL: Denies fever, chills, or sweats. EYES: Denies visual changes, redness, or discharge. ENT: Denies rhinorrhea, congestion, sore throat, or otalgia. CARDIOVASCULAR: Denies chest pain, palpitations, or edema. RESPIRATORY: Denies cough or dyspnea. GASTROINTESTINAL: Denies abdominal pain, nausea, vomiting, or diarrhea. GENITOURINARY: Denies dysuria or hematuria. SKIN: Denies rash or itching. MUSCULOSKELETAL: Denies back pain, joint pain, or myalgia. NEUROLOGIC: Denies headache, numbness, dizziness, or weakness. PSYCHIATRIC: Denies anxiety or depression. All systems reviewed & are unremarkable except as noted in HPI and below PMFSH Past Medical History Medical History Age related osteoporosis Chronic midline low back pain without sciatica GERD (gastroesophageal reflux disease) Hip fracture left closed intertrochanteric fracture 02/2021 Hyperlipidemia Hypothyroidism Overactive bladder Peripheral sensory neuropathy Seizure Seizure disorder Vitamin D deficiency Surgical History Surgical History History of repair of hip fracture Hx of cataract extraction 2006 Family History Family History Father Family history of malignant neoplasm of brain Mother Family history of throat cancer Social History Social History Social History: 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 She never or had any children. Her brother is the durable power research attorney for healthcare. Patient is a full code. The patient lives home alone. She is former smoker. She does not use any alcohol marijuana or illicit drugs. Smoking packs per day: 0.5 Smoking cigarettes per day: 10.0 Years smoked: 10 Smoking pack-years: 5.00 Alcohol intake: never Substance use: never Substance use type: does not use Gender identity (if verbalized by the patient): Female Spiritual care concerns: No Exam Narrative: GENERAL: Well-appearing, well-nourished, and in no acute distress. HEAD: Normocephalic, atraumatic. EYES: PERRLA and EOMI. ENT: Nares clear, no rhinorrhea or epistaxis. Mucous membranes moist. NECK: Supple. No masses. No JVD CHEST: Clear to auscultation. No respiratory distress. No wheezes rales or rhonchi HEART: Regular rate and rhythm. No murmur heard. Normal peripheral pulses. ABDOMEN: Soft, nontender, nondistended, normal active bowel sounds. EXTREMITIES: Normal range of motion. No edema. SKIN:
[2021-09-10 20:27] LABS: Troponin I < 0.012 ng/mL (0.000-0.034)
[2021-09-10 20:57] LABS: Appearance Urine Clear (Clear); Bilirubin Urine Negative (Negative); Blood Urine Negative (Negative); Color Urine Yellow (Yellow); Glucose Urine UA Negative (Negative); Ketones Urine Negative (Negative); Leukocyte Esterase Ur Negative LEU/UL (Negative); Nitrate Urine Negative (Negative); Protein Urine Negative (Negative); Urobilinogen Urine 0.2 mg/dL (<2.0)
[2021-09-10 21:08] LABS: Bacteria Urine Trace /hpf; Mucus Urine Rare /lpf; RBC Urine 0-2 /hpf (0-2); WBC Urine 0-3 /hpf
[2021-09-10 21:36] LABS: Add Urine Microscopic? NO
== END 2021-09-10 23:28 | disposition home or self-care (01) ==
PROVIDERS: Emergency Medicine; Emergency Provider Emergency Medicine; PCP Internal Medicine
DX: R42 Dizziness and giddiness (principal); R91.8 Other nonspecific abnormal finding of lung field; E03.9 Hypothyroidism, unspecified; E78.5 Hyperlipidemia, unspecified; F17.210 Nicotine dependence, cigarettes, uncomplicated
CPT/HCPCS: 36415; 71046; 80053; 81003; 84484; 85025; 85055; 93005; 96360; 99284; J7040

== ENCOUNTER 2021-12-01 12:30 | Outpatient (RCR) | payer MEDICARE, SELFPAY ==
--- NOTE | 2021-09-02 14:36 | PTOPEVAL ---
PHYSICAL THERAPY INITIAL EVALUATION AND PROGRESS REPORT. Thank you for referring Dejah Simon to [facility].? The patient is scheduled to be seen for therapy? 1-2x/week for 4 weeks. Please review, sign, date and return this plan of care JADYN. I agree with and certify that the following plan of care is medically necessary. Referring Physician Date Attending Provider: Krys Scales NP *PT Outpatient Evaluation Start: 09/02/21 Evaluation Information Diagnosis unsteadiness Subjective Information Pt states she has fallen 4 Query Text:As Reported By Patient/ times in the last 6 months. Family She fell in 02/2021 and broke her hip. She was in rehab for 3 months after her fall. She states she has neuropathy in her feet. Pt has been taking a sponge bath in the last 6 months due to unable to get in /out of the bathtub. Pt states she has the endurance to stand for about 15 mins, and can walk for 1-2 minutes before needing to sit. Pt lives in an upper level apartment with [address]. Pts brother is around often to help, especially when having to leave her apartment. Pt states she sits and sleeps in her recliner all day. Prior Level of Function Activity of Daily Living Ability Needs Some Help Indoor/Home Mobility Independent Community Mobility Independent Stairs Ability Independent Functional Cognition (Planning, Shopping Needs Some Help , Taking Medications) Cooking Yes Cleaning Yes Laundry No Shopping No Driving No Home Type Apartment Environmental Barriers Railing, Bilateral,Stairs, Greater than 4 Living Situation Alone Mobility Assistive Devices (Used Last 3 Walker, Wheeled Pain Assessment Pain Score Pain Score 0: Self Report Lower Extremity Range of Motion Gross Lower Extremity Range of Motion B hip flexion 3+/5 Comments B knee flexion/extension 4-/5 B ankle df 3/5 B hip abduction/adduction 3+/5 Posture Posture Evaluation View Anterior Head/C-Spine Posture Flexed,Forward Head Thoracic Spine Posture
--- NOTE | 2021-09-14 13:34 | PCPTNOTE ---
Patient called & cancelled scheduled appointment this date due to not feeling well.
--- NOTE | 2021-09-28 14:15 | PTOPEVAL ---
PHYSICAL THERAPY PROGRESS REPORT. Thank you for referring Dejah Simon to [facility] [place] [facility] [place] The patient is scheduled to be seen for therapy? 1x/week for 5 weeks. Please review, sign, date and return this plan of care JADYN. I agree with and certify that the following plan of care is medically necessary. Referring Physician Date Attending Provider: Krys Scales NP Evaluation Information Diagnosis unsteadiness Subjective Information Pt states she is doing good. Query Text:As Reported By Patient/ She reports good compliance Family with her HEP. Pt states she has improved her ability to get in/out of the care IND. She has required less assistance from her brother. Pain Assessment Pain Score 0: Self Report Lower Extremity Range of Motion Gross Lower Extremity Range of Motion B hip flexion 4-/5 Comments B knee flexion/extension 4/5 B ankle df 4-/5 B hip abduction/adduction 3+/5 Balance Assessment Tinetti Balance Assessment Tinetti Composite Score (Balance + Gait) Time Up Go (TUG) Timed Up and Go Test (TUG) (Seconds) 18 Assistive Devices Walker, Wheeled Comments Initially: 24s with WW 09/28/21: 18s with WW 5 Time Sit to Stand Time in Seconds 18 5 Time Sit to Stand Comments Initially: 18s, timed with use Query Text:Normative Data: If Greater of UEs, able to complete 2 Than 15 Seconds, 74% Increase Risk for sit<> stands without UEs. Recurrent Falls 09/28/21: 15s with the use of UEs, unable to complete a sit <>stand without UE support this date Gait Assessment Ambulation Assistive Devices Walker, Wheeled Gait Pattern Observed Trunk Flexed Other Gait Observations Increased trunk flexion with increased fatigue. 2 Minute Walk Total Distance Walked (feet) 265 2 Minute Walk Gait Speed Score (feet/sec) 2.20 2 Minute Walk Test Comments Initially: 250ft with WW 09/28/21: 265ft with WW General Exercise Exercise Description - reviewed HEP Query Text:Record Sets, Reps, - pt performs demonstration of Resistance, and Position home exercises - moderate cues needed PT Clinical Summary Dejah presents to therapy today for her progress report following 3 visits to treat her diagnosis of generalized weakness. Today she demonstrates mild improve
--- NOTE | 2021-11-03 13:43 | PTOPEVAL ---
PHYSICAL THERAPY PROGRESS REPORT. Thank you for referring Dejah Simon to [facility].? The patient is scheduled to be seen for therapy? 1x/week for 4 weeks. Please review, sign, date and return this plan of care JADYN. I agree with and certify that the following plan of care is medically necessary. Referring Physician Date Attending Provider: Krys Scales NP Evaluation Information Diagnosis unsteadiness Subjective Information Pt and her brother both Query Text:As Reported By Patient/ reports things are going. Pt Family reports she thinks her balance is improving. She continues to report fair compliance with her HEP. She states she plans to start sleeping in her bed in start of her recliner. Per patents brother, she is making a lot of improvements. He states she can get in/out of the car has become easier and he does not have to help lift her legs anymore, he also states she can descend the steps at almost a regular speed, and has started walking short distances around her home without her walker. Pain Assessment Pain Score 0: Self Report Lower Extremity Range of Motion General Lower Extremity Range of Motion WFL/Left,WFL/Right Lower Extremity Muscle Strength Testing Gross Lower Extremity Strength B hip flexion 4-/5 B knee flexion/extension 4/5 B ankle df 4-/5 B hip abduction/adduction 3+/5 Balance Assessment Tinetti Balance Assessment Tinetti Composite Score (Balance + Gait) Interpretation of Scores High risk for falls(< 19) Time Up Go (TUG) Assistive Devices Walker, Wheeled Comments Initially: 24s with WW 09/28/21: 18s with WW 11/03/21: 22s with WW 5 Time Sit to Stand 5 Time Sit to Stand Comments Initially: 18s, timed with use Query Text:Normative Data: If Greater of UEs, able to complete 2 Than 15 Seconds, 74% Increase Risk for sit<> stands without UEs. Recurrent Falls 09/28/21: 15s with the use of UEs, unable to complete a sit <>stand without UE support this date 11/03/21: 19s with the use of UEs, 20s wthout the use of UEs did not come to full
--- NOTE | 2021-12-01 13:16 | PTOPDC ---
Evaluation Information Assessment Status Discharge Diagnosis unsteadiness Onset chronic Subjective Information Pt reports good compliance with her HEP. She states her balance has improved as has her walking . She states she is now only limited by SOB, but voices this will get better with practice. Pts brother reports she is much more stable on her feet. Reported Pain Level Pain Score 0: Self Report Assessment PT Clinical Summary Dejah has completed 11 session of skilled physical therapy to treat her unsteadiness. Today she demonstrates improve upright posture during standing and ambulation, she demonstrates improved LE strength. Her times to complete standardized assessments have varied throughout her sessions, likely d/t attention and motivation versus change in status. She demonstrates the same average gait speed however she is able to complete sit<>stands without UE support. Dejah will be discharged from skilled physical therapy services at this time. She was educated on community resources to help maintain overall mobility and strength. She will be discharged from skilled therapy services at this time. Plan of Care PT Services Indicated No Treatment Frequency and to be d/c'ed Duration
== END 2021-12-01 23:59 | disposition home or self-care (01) ==
LOC: ANHPT 12:30
PROVIDERS: PCP Internal Medicine; Referring Provider Nurse Practitioner; Visit Provider Nurse Practitioner
DX: R26.81 Unsteadiness on feet (principal)
CPT/HCPCS: 97110; 97112; 97116; 97140; 97161; 97530

== ENCOUNTER 2021-12-08 14:28 | Outpatient (CLI) | payer MEDICARE, SELFPAY ==
[2021-12-08 15:41] LABS: Phenytoin Dilantin 21 ug/mL (10-20)
== END 2021-12-08 14:29 | disposition home or self-care (01) ==
PROVIDERS: PCP Internal Medicine; Visit Provider Clinical Nurse Specialist
DX: G40.909 Epilepsy, unspecified, not intractable, without status epilepticus (principal)
CPT/HCPCS: 36415; 80185

== ENCOUNTER 2021-12-22 15:02 | Outpatient (CLI) | payer MEDICARE, SELFPAY ==
[2021-12-22 15:48] LABS: Phenytoin Dilantin 31 ug/mL (10-20)
== END 2021-12-22 15:03 | disposition home or self-care (01) ==
PROVIDERS: PCP Internal Medicine; Visit Provider Clinical Nurse Specialist
DX: G40.909 Epilepsy, unspecified, not intractable, without status epilepticus (principal)
CPT/HCPCS: 36415; 80185

== ENCOUNTER 2021-12-30 14:31 | Outpatient (CLI) | payer MEDICARE, SELFPAY ==
[2021-12-30 15:43] LABS: Phenytoin Dilantin 22 ug/mL (10-20)
== END 2021-12-30 14:32 | disposition home or self-care (01) ==
PROVIDERS: PCP Internal Medicine; Visit Provider Clinical Nurse Specialist
DX: G40.909 Epilepsy, unspecified, not intractable, without status epilepticus (principal)
CPT/HCPCS: 36415; 80185

== ENCOUNTER 2022-01-13 14:15 | Outpatient (CLI) | payer MEDICARE, SELFPAY ==
[2022-01-13 15:17] LABS: Phenytoin Dilantin 12 ug/mL (10-20)
== END 2022-01-13 14:16 | disposition home or self-care (01) ==
LOC: ANHLAB 14:18
PROVIDERS: PCP Internal Medicine; Visit Provider Clinical Nurse Specialist
DX: G40.909 Epilepsy, unspecified, not intractable, without status epilepticus (principal)
CPT/HCPCS: 36415; 80185

== ENCOUNTER 2022-06-30 14:46 | Outpatient (CLI) | payer MEDICARE, SELFPAY ==
[2022-06-30 15:45] LABS: Phenytoin Dilantin 8 ug/mL (10-20)
== END 2022-06-30 14:47 | disposition home or self-care (01) ==
LOC: ANHLAB 14:48
PROVIDERS: PCP Internal Medicine; Visit Provider Nurse Practitioner
DX: G40.909 Epilepsy, unspecified, not intractable, without status epilepticus (principal)
CPT/HCPCS: 36415; 80185

== ENCOUNTER 2022-10-06 10:27 | Outpatient (CLI) | payer MEDICARE, SELFPAY ==
[2022-10-06 11:50] LABS: Alanine Aminotransferase 21 U/L (6-35); Albumin Level 4.3 g/dL (3.5-5.1); Alkaline Phosphatase 105 U/L (38-126); Aspartate Amino Transferase 29 U/L (14-36); Bilirubin,Total 0.4 mg/dL (0.2-1.3); Blood Urea Nitrogen 9 mg/dL (7-17); Calcium 9.1 mg/dL (8.4-10.2); Carbon Dioxide 31 mmol/L (22-30); Estimated Glomerular Filt Rate > 60; Glucose 117 mg/dL (65-110); HDL Direct 58 mg/dL; Potassium 4.1 mmol/L (3.4-5.0); Sodium 141 mmol/L (137-145); Triglycerides 141 mg/dL (<150)
[2022-10-06 11:51] LABS: Anion Gap 6 mmol/L (8-16); Chloride 104 mmol/L (98-107); Cholesterol 197 mg/dL (0-200)
[2022-10-06 11:52] LABS: Basophils Percent Auto 0.7 % (0.2-1.2); Eosinophils Absolute Auto 0.1 K/mm3 (0-0.3); Eosinophils Percent Auto 1.8 % (0-4.4); Hematocrit 41.7 % (37.0-47.0); Hemoglobin 13.7 g/dL (12.0-15.0); Immature Granulocyte Absolute 0.01 K/mm3 (0.00-0.031); Immature Granulocyte Percent A 0.2 % (0-0.5); Immature Platelet Fraction Pct 8.2 % (0.9-11.2); Lymphocytes Percent Auto 22.7 % (18.3-44.2); Mean Corpuscular HGB Conc 32.9 g/dl (32-36); Mean Corpuscular Hemoglobin 32.9 pg (26-34); Mean Platelet Volume 10.8 fl (7.4-10.4); Monocytes Absolute Auto 0.3 K/mm3 (0.1-0.6); Monocytes Percent Auto 7.7 % (2.6-8.5); Neutrophils Percent Auto 66.9 % (45.5-73.1); Platelet Count Result 127 k/mm3 (150-375); Red Blood Count 4.17 M/mm3 (4.2-5.4); Red Cell Distribution Width 12.5 % (11.5-14.5); White Blood Count 4.4 K/mm3 (4.5-10.0)
[2022-10-06 11:59] LABS: LDL Cholesterol Direct 91 mg/dL
[2022-10-06 12:13] LABS: Phenytoin Dilantin 8 ug/mL (10-20)
[2022-10-06 14:39] LABS: Vitamin D 25 Hydroxy 43.9 ng/mL
== END 2022-10-06 10:28 | disposition home or self-care (01) ==
PROVIDERS: PCP Internal Medicine; Visit Provider Nurse Practitioner
DX: E03.9 Hypothyroidism, unspecified (principal); R56.9 Unspecified convulsions; Z13.29 Encounter for screening for other suspected endocrine disorder; E78.5 Hyperlipidemia, unspecified; E55.9 Vitamin D deficiency, unspecified
CPT/HCPCS: 36415; 80053; 80061; 80185; 82306; 84443; 85025; 85055

== ENCOUNTER 2022-11-01 14:17 | Outpatient (CLI) | payer MEDICARE, SELFPAY ==
[2022-11-01 15:28] LABS: Phenytoin Dilantin 28 ug/mL (10-20)
[2022-11-01 15:55] LABS: HIV 1/2 Ab P24 Ag Result Negative (Negative)
[2022-11-01 16:38] LABS: Hepatitis C Virus Antibody Negative (Negative)
== END 2022-11-01 14:18 | disposition home or self-care (01) ==
LOC: ANHLAB 14:22
PROVIDERS: PCP Internal Medicine; Visit Provider Nurse Practitioner
DX: R56.9 Unspecified convulsions (principal); D69.6 Thrombocytopenia, unspecified
CPT/HCPCS: 36415; 80185; 86703; 86803; G0432

== ENCOUNTER 2023-02-08 14:28 | Outpatient (CLI) | payer MEDICARE, SELFPAY ==
[2023-02-08 16:35] LABS: Phenytoin Dilantin 23 ug/mL (10-20)
== END 2023-02-08 14:29 | disposition home or self-care (01) ==
PROVIDERS: PCP Internal Medicine; Visit Provider Nurse Practitioner
DX: R56.9 Unspecified convulsions (principal)
CPT/HCPCS: 36415; 80185

== ENCOUNTER 2023-04-11 14:40 | Outpatient (CLI) | payer MEDICARE, SELFPAY ==
[2023-04-14 20:38] LABS: Phenytoin Dilantin Free 0.8 mg/L (1.0-2.0)
[2023-04-20 17:35] LABS: Reference Lab Test Result 12.4
== END 2023-04-11 14:41 | disposition home or self-care (01) ==
PROVIDERS: PCP Nurse Practitioner; Visit Provider Nurse Practitioner
DX: R56.9 Unspecified convulsions (principal)
CPT/HCPCS: 36415; 80185; 80186

== ENCOUNTER 2023-08-08 16:07 | Outpatient (CLI) | payer MEDICARE, SELFPAY ==
[2023-08-08 17:14] LABS: Alanine Aminotransferase 15 U/L (6-35); Aspartate Amino Transferase 40 U/L (14-36)
== END 2023-08-08 16:08 | disposition home or self-care (01) ==
PROVIDERS: PCP Internal Medicine; Visit Provider Podiatrist Foot & Ankle Surgery
DX: B35.1 Tinea unguium (principal)
CPT/HCPCS: 36415; 84450; 84460

== ENCOUNTER 2023-10-12 12:04 | Outpatient (CLI) | payer MEDICARE, SELFPAY ==
[2023-10-12 12:51] LABS: Basophils Percent Auto 0.7 % (0.2-1.2); Eosinophils Absolute Auto 0.1 K/mm3 (0-0.3); Eosinophils Percent Auto 2.4 % (0-4.4); Hematocrit 41.7 % (37.0-47.0); Hemoglobin 13.6 g/dL (12.0-15.0); Immature Granulocyte Absolute 0.01 K/mm3 (0.00-0.031); Immature Granulocyte Percent A 0.2 % (0-0.5); Immature Platelet Fraction Pct 8.4 % (0.9-11.2); Lymphocytes Absolute Auto 1.46 K/mm3 (0.9-3.2); Lymphocytes Percent Auto 35.5 % (18.3-44.2); Mean Corpuscular HGB Conc 32.6 g/dl (32-36); Mean Corpuscular Hemoglobin 32.9 pg (26-34); Monocytes Absolute Auto 0.3 K/mm3 (0.1-0.6); Monocytes Percent Auto 8.3 % (2.6-8.5); Neutrophils Absolute Auto 2.2 K/mm3 (1.3-6.7); Neutrophils Percent Auto 52.9 % (45.5-73.1); Platelet Count Result 109 k/mm3 (150-375); Red Blood Count 4.13 M/mm3 (4.2-5.4); Red Cell Distribution Width 12.7 % (11.5-14.5); White Blood Count 4.1 K/mm3 (4.5-10.0)
[2023-10-12 12:53] LABS: Alanine Aminotransferase 17 U/L (6-35); Albumin Level 4.5 g/dL (3.5-5.1); Alkaline Phosphatase 89 U/L (38-126); Anion Gap 7 mmol/L (4-12); Aspartate Amino Transferase 31 U/L (14-36); Bilirubin,Total 0.3 mg/dL (0.2-1.3); Blood Urea Nitrogen 12 mg/dL (7-17); Calcium 8.7 mg/dL (8.4-10.2); Carbon Dioxide 35 mmol/L (22-30); Chloride 102 mmol/L (98-107); Cholesterol 169 mg/dL (0-200); Estimated Glomerular Filt Rate > 60; Glucose 106 mg/dL (65-110); HDL Direct 61 mg/dL; Phenytoin Dilantin 13 ug/mL (10-20); Potassium 4.5 mmol/L (3.4-5.0); Sodium 144 mmol/L (137-145); Triglycerides 112 mg/dL (<150)
[2023-10-12 13:01] LABS: LDL Cholesterol Direct 94 mg/dL
[2023-10-12 13:24] LABS: Vitamin D 25 Hydroxy 51.8 ng/mL
== END 2023-10-12 12:05 | disposition home or self-care (01) ==
LOC: ANHLAB 12:07
PROVIDERS: PCP Internal Medicine; Visit Provider Nurse Practitioner
DX: E03.9 Hypothyroidism, unspecified (principal); D64.9 Anemia, unspecified; E55.9 Vitamin D deficiency, unspecified; E78.5 Hyperlipidemia, unspecified; R56.9 Unspecified convulsions
CPT/HCPCS: 36415; 80053; 80061; 80185; 82306; 84443; 85025; 85055

== ENCOUNTER 2023-11-08 15:39 | Outpatient (CLI) | payer MEDICARE, SELFPAY ==
[2023-11-08 16:19] LABS: Alanine Aminotransferase 16 U/L (6-35); Aspartate Amino Transferase 36 U/L (14-36)
== END 2023-11-08 15:40 | disposition home or self-care (01) ==
LOC: ANHLAB 15:44
PROVIDERS: PCP Internal Medicine; Visit Provider Podiatrist Foot & Ankle Surgery
DX: B35.1 Tinea unguium (principal)
CPT/HCPCS: 36415; 84450; 84460

== ENCOUNTER 2024-02-13 15:27 | Outpatient (CLI) | payer MEDICARE, SELFPAY ==
[2024-02-13 16:43] LABS: Alanine Aminotransferase 20 U/L (6-35); Aspartate Amino Transferase 35 U/L (14-36)
== END 2024-02-13 15:28 | disposition home or self-care (01) ==
LOC: ANHLAB 15:30
PROVIDERS: PCP Internal Medicine; Visit Provider Podiatrist Foot & Ankle Surgery
DX: B35.1 Tinea unguium (principal)
CPT/HCPCS: 36415; 84450; 84460

== ENCOUNTER 2024-11-12 11:03 | Outpatient (CLI) | payer MEDICARE, SELFPAY ==
--- OUTSIDE RECORDS SUMMARY | 2024-11-12 11:10 | XMS_ITS | Continuity of Care Document ---
Author Organization [facility] Address [address] [place] [address] Phone Care Team Providers Care Automotive Technician Name Role Phone Landon OD, Claudy Unavailable Unavailable Procedures Procedure Date Eye Exam & Treatment Eye Exam & Treatment No Script Refraction Post-op Follow-up Visit Post-op Follow-up Visit Post-op Follow-up Visit Post-op Follow-up Visit Post-op Follow-up Visit Refraction Post-op Follow-up Visit Remove Cataract, Insert Lens Eye Exam & Treatment I[facility]-Professional Office/outpatient Visit, Est Visual Functional Status Assessed Post-op Follow-up Visit Post-op Follow-up Visit Post-op Follow-up Visit Post-op Follow-up Visit Post-op Follow-up Visit Refraction Post-op Follow-up Visit Post-op Follow-up Visit Remove Cataract, Insert Lens Eye Exam Established Pt I[facility] Advance Directives Directive Yes / No Effective Date File Name No Information Encounters Encounter Description Practice Location Reason(s) For Visit Diagnoses Date Provider Providers Copied on Encounter [facility], [address], [place], [place], [id number], [place] tel:[phone] [facility] No Information Alfonzo-2 4-201 0 Landon OD Claudy. [address] , [address], [place], [place], [facility], [place]. tel:[phone] [facility], [address], [place], [place], [id number], [place] tel:[phone] [facility] No Information Alfonzo-1 8-200 9 Landon OD Claudy. [address] , [address], [place], [place], [facility], [place]. tel:[phone] [facility], [address] [place] [address] [address], [place], [place], [id number], [place] tel:[phone] [facility] No Information Sep-1 8-200 8 Landon OD Claudy. [address] , [address], [place], [place], [facility], [place]. tel:[phone] [facility], [address] [place] [address] [address], [place], [place], [id number], [place] tel:[phone] [facility] No Information Sep-0 4-200 8 Landon OD Claudy. [address] , [address], [place], [place], [facility], [place]. tel:[phone] [facility], [address] [place] [address] [address], [place], [place], [address], [place] tel:[phone] [facility] No Information Aug-2 1-200 8 Landon OD Claudy. [address] , [address], [place], [facility], [place]. tel:[phone] [facility], [address], [place], [place], [address], [place] tel:[phone] [facility] No Information Aug-0 4-200 8 Doisy Edward. [address] , [address], [place], [facility], [place]. tel:[phone] [facility], [address], [place], [place], [id number], [place] tel:[phone] [facility] No Information Sukhwinder-2 4-200 8 Landon OD Claudy. [address] , [address], [place], [facility], [place]. tel:[phone] [facility], [address] [place] [address] [address], [place], [place], [id number], [place] tel:[phone] [facility] No Information Alfonzo-2 5-200 8 Yolanda Marks. [address] , [address], [place], [facility], [place]. tel:[phone] [facility], [address], [place], [place], [id number], [place] tel:[phone] [facility] No Information Alfonzo-2 5-200 8 Yolanda Marks. [facility] [address], [place], [facility], [place]. tel:[phone] [facility], [address], [place], [place], [address], [place] tel:[phone] [facility] No Information Alfonzo-1 1-200 8 Yolanda Marks. [facility] , [address], [place], [facility], [place]. tel:[phone] Referring Provider: Kendrick Rodarte, [facility] [address], [place], [facility]. tel:[phone] Office/outpat ient Visit, Est [facility], [address], [place], [place], [address], [place] tel:[phone] [facility] No Information Dec-1 2-200 7 Yolanda Marks. [address] [address] , [address], [place], [facility], [place]. tel:[phone] Referring Provider: Kendrick Rodarte, [address], [place], [facility]. tel:[phone] [facility], [address], [place], [place], [address], [place] tel:[phone] [facility] No Information Aug-0 2-200 7 Landon OD Claudy. [address] [facility] , [address], [place], [facility], [place]. tel:[phone] [facility], [address], [place], [place], [id number], [place] tel:[phone] [facility] No Information Oct-1 9-200 7 Landon OD Claudy. [address] [facility] [address] , [address], [place], [facility], [place]. tel:[phone] [facility], [address] [place] [address] [address], [place], [place], [address], [place] tel:[phone] [facility] No Information Sukhwinder-0 5-200 7 Landon OD Claudy. [address] [facility] [address] , [address], [place], [facility], [place]. tel:[phone] [facility], [address] [place] [address] [address], [place], [place], [address], [place] tel:[phone] [facility] No Information Alfonzo-2 3-200 7 Landon OD Claudy. [address] [facility] , [address], [place], [facility], [place]. tel:[phone] [facility], [address], [place], [place], [address], [place] tel:[phone] [facility] No Information Alfonzo-0 6-200 7 Yolanda Marks. [address] [facility] , [address], [place], [facility], . tel:[phone] [facility], [address], [place], [place], [address], tel:[phone] [facility] No Information May-2 5-200 7 Yolanda Marks. [address], [address], [place], [facility], . tel:[phone] [facility], [address], [place], [place], [address], tel:[phone] [facility] No Information May-2 3-200 7 Yolanda Marks. [address], [address], [place], [facility], . tel:[phone] [facility], [address], [place], [place], [address], tel:[phone] [facility] No Information May-2 2-200 7 Yolanda Marks. [address], [address], [place], [facility], . tel:[phone] [facility], [address], [place], [place], [address], tel:[phone] [facility] No Information May-0 9-200 7 Yolanda Marks. [address], [address], [place], [facility], [place]. tel:[phone] Referring Provider: Kendrick Rodarte [facility] [address], [place], [facility]. tel:[phone] Family History Family Member Type Diagnosis Age At Onset No Information Payers Payer name Insurance type Covered democrat ID Authoriza tion(s) [place] [id number] [facility] [id number] Social History Type Description Quantity Date Captured Comments Sex Female Smoking Status No Information Chief Complaint And Reason For Visit No Information Reason For Referral Reason For Referral No Information History Of Present Illness Encounter Date Complaint History Of Prese nt Illness No Information Functional Status Date Functional Assessmen t No Information Instructions Date Instruction Additional Infor mation No Information Assessments Type Assessment Date No Information Patient Care Teams Name Effective Dates (start - stop) Status Members No Information
--- OUTSIDE RECORDS SUMMARY | 2024-11-12 11:10 | XMS_ITS | Clinical Summary ---
Author Organization [facility] Address [facility] [place] [address] Care Team Providers Care Relocation Commissioner Name Role Phone Unavailable Primary Care Provider Unavailabl e Social History Tobacco Use Types Packs/Day Years Used Date Smoking Tobacco: Never Assessed Comments Unknown Sex and Gender Information Value Date Recorded Sex Assigned at Not on file Legal Sex Female 5:14 PM CDT Gender Identity Not on file Sexual Orientation Not on file Plan of Treatment Health Maintenance Due Date Last Done Comments DTaP, Tdap and Td Vaccines ( 1 - Tdap) 1960 Pneumococcal Vaccine: 50+ Ye ars (1 of 1 - PCV) 1991 Zoster Vaccines (1 of 2) 1991 Dexa Scan (General) 2006 RSV Immunization or 60+ Years (1 - 1-dose 75+ series) 2016 COVID-19 Vaccine (2023-2 5 season) 2023 Meningococcal B Vaccine Aged Out No l onger eligible based on patient's age to complete this topic Meningococcal Vaccine Aged Out No robe samantha eligible based on patient's age to complete this topic RSV Immunizations Under 20 Months Aged Out No longer eligible based on patient's age to complete this topic
[2024-11-12 12:18] LABS: Hematocrit 42.2 % (37.0-47.0); Hemoglobin 14.2 g/dL (12.0-15.0); Immature Granulocyte Percent A 0.2 % (0-0.5); Immature Platelet Fraction Pct 6.8 % (0.9-11.2); Lymphocytes Absolute Auto 1.39 K/mm3 (0.9-3.2); Mean Corpuscular HGB Conc 33.6 g/dl (32-36); Mean Corpuscular Hemoglobin 33.3 pg (26-34); Mean Corpuscular Volume 98.8 fl (80-100); Nucleated Red Blood Cells Absolute Auto 0.000 K/mm3 (0.0-0.012); Nucleated Red Blood Cells Perc 0.0 % (0.0-0.2); Platelet Count Result 117 k/mm3 (150-375); Red Blood Count 4.27 M/mm3 (4.2-5.4); White Blood Count 4.9 K/mm3 (4.5-10.0)
[2024-11-12 12:35] LABS: Alanine Aminotransferase 15 U/L (6-35); Albumin Level 4.5 g/dL (3.5-5.1); Alkaline Phosphatase 100 U/L (38-126); Anion Gap 9 mmol/L (4-12); Aspartate Amino Transferase 33 U/L (14-36); Bilirubin,Total 0.5 mg/dL (0.2-1.3); Blood Urea Nitrogen 11 mg/dL (7-17); Calcium 9.6 mg/dL (8.4-10.2); Carbon Dioxide 30 mmol/L (22-30); Chloride 103 mmol/L (98-107); Cholesterol 182 mg/dL (0-200); Estimated Glomerular Filt Rate > 60; Glucose 84 mg/dL (65-110); HDL Direct 50 mg/dL; Potassium 4.2 mmol/L (3.4-5.0); Sodium 142 mmol/L (137-145); Total Protein 8.0 g/dL (6.3-8.2); Triglycerides 219 mg/dL (<150)
[2024-11-12 13:10] LABS: Thyroid Stimulating Hormone 1.160 uIU/mL (0.465-4.680)
[2024-11-12 13:11] LABS: Ferritin 41.90 ng/mL (11.1-264)
[2024-11-12 13:46] LABS: Vitamin B12 324.0 pg/mL (239-931)
== END 2024-11-12 11:04 | disposition home or self-care (01) ==
LOC: ANHLAB 11:07
PROVIDERS: PCP Internal Medicine; Visit Provider Nurse Practitioner
DX: D64.9 Anemia, unspecified (principal); E78.5 Hyperlipidemia, unspecified; R53.83 Other fatigue; E03.9 Hypothyroidism, unspecified; E55.9 Vitamin D deficiency, unspecified
CPT/HCPCS: 36415; 80053; 80061; 80185; 82607; 82728; 82746; 84443; 85025; 85055